=== PATIENT | female | born 1965 | race Caucasian/White ===

== ENCOUNTER 2022-01-23 12:12 | Outpatient (CLI) | payer OTHER, SELFPAY ==
[2022-01-23 12:46] LABS: Alanine Aminotransferase 17 U/L (6-35); Albumin Level 4.6 g/dL (3.5-5.1); Alkaline Phosphatase 78 U/L (38-126); Anion Gap 4 mmol/L (8-16); Aspartate Amino Transferase 26 U/L (14-36); Bilirubin,Total 0.6 mg/dL (0.2-1.3); Blood Urea Nitrogen 15 mg/dL (7-17); Calcium 8.9 mg/dL (8.4-10.2); Carbon Dioxide 25 mmol/L (22-30); Chloride 108 mmol/L (98-107); Cholesterol 198 mg/dL (0-200); Estimated Glomerular Filt Rate > 60; Glucose 93 mg/dL (65-110); HDL Direct 62 mg/dL; Potassium 4.1 mmol/L (3.4-5.0); Sodium 137 mmol/L (137-145); Triglycerides 81 mg/dL (<150)
[2022-01-23 12:57] LABS: LDL Cholesterol Direct 90 mg/dL
[2022-01-23 13:35] LABS: Free T4 Free Thyroxine 0.97 ng/mL (0.78-2.19)
== END 2022-01-23 12:13 | disposition home or self-care (01) ==
LOC: ANHLAB 12:16
PROVIDERS: PCP Family Medicine; Visit Provider Physician Assistant
DX: E03.9 Hypothyroidism, unspecified (principal); Z13.1 Encounter for screening for diabetes mellitus; Z00.00 Encounter for general adult medical examination without abnormal findings; Z13.220 Encounter for screening for lipoid disorders
CPT/HCPCS: 36415; 80053; 80061; 84439; 84443

== ENCOUNTER 2022-01-24 14:51 | Outpatient (CLI) | payer OTHER, SELFPAY ==
--- NOTE | ~2022-01-24 | MM_ITS ---
EXAMINATION: MM screening nidia BI w tomas HISTORY: Screening mammogram TECHNIQUE: Craniocaudal and mediolateral oblique 3-D tomosynthesis images were obtained and synthetic 2-D images were generated. CAD analysis was submitted and interpreted. COMPARISON: No prior mammogram is available for comparison at this institution. BREAST PARENCHYMAL COMPOSITION: There are scattered areas of fibroglandular density. FINDINGS: There is a biopsy marker in the upper outer quadrant of the left breast; history of prior b enign left breast biopsy. There is no suspicious mass, calcification, or architectural distortion to suggest malignancy in either breast. There has been no suspicious interval change. IMPRESSION: 1. No mammographic evidence of malignancy. 2. Recommend routine screening mammography in one year. BI-RADS Category 1: Negative Reviewed, dictated and finalized at location B.
== END 2022-01-24 14:52 | disposition home or self-care (01) ==
LOC: ANHIMG 14:53
PROVIDERS: PCP Family Medicine; Visit Provider Physician Assistant
DX: Z12.31 Encounter for screening mammogram for malignant neoplasm of breast (principal)
CPT/HCPCS: 77063; 77067

== ENCOUNTER 2022-07-04 10:37 | Outpatient (CLI) | payer OTHER, SELFPAY ==
[2022-07-04 11:23] LABS: Alanine Aminotransferase 19 U/L (6-35); Albumin Level 4.7 g/dL (3.5-5.1); Alkaline Phosphatase 89 U/L (38-126); Anion Gap 7 mmol/L (8-16); Aspartate Amino Transferase 23 U/L (14-36); Bilirubin,Total 0.6 mg/dL (0.2-1.3); Blood Urea Nitrogen 18 mg/dL (7-17); Calcium 9.1 mg/dL (8.4-10.2); Carbon Dioxide 26 mmol/L (22-30); Chloride 108 mmol/L (98-107); Cholesterol 186 mg/dL (0-200); Estimated Glomerular Filt Rate > 60; Glucose 99 mg/dL (65-110); HDL Direct 55 mg/dL; Potassium 4.3 mmol/L (3.4-5.0); Sodium 141 mmol/L (137-145); Triglycerides 95 mg/dL (<150)
[2022-07-04 11:34] LABS: LDL Cholesterol Direct 79 mg/dL
[2022-07-04 11:39] LABS: Free T4 Free Thyroxine 1.19 ng/mL (0.78-2.19)
== END 2022-07-04 10:38 | disposition home or self-care (01) ==
LOC: ANHLAB 10:38
PROVIDERS: PCP Family Medicine; Visit Provider Physician Assistant
DX: R53.83 Other fatigue (principal); Z13.220 Encounter for screening for lipoid disorders; Z13.1 Encounter for screening for diabetes mellitus
CPT/HCPCS: 36415; 80053; 80061; 84439; 84443

== ENCOUNTER 2022-09-02 00:14 | Day surgery (SDC) | payer OTHER, SELFPAY ==
[2022-08-19 12:27] VITALS: BMI 34.2
[2022-09-02 11:40] VITALS: BP 135/92; PULSE 110; RESP 18; TEMP 36.6; O2SAT 99
[2022-09-02] MEDS: LACTATED RINGERS 1,000 ML 150 ML IV CONT (11:58)
--- NOTE | 2022-09-02 12:16 | WPDANESEPPF ---
Anes - Initial Pre Proc Eval Procedure: Operation Date: 09/02/22 13:15 Proposed Procedures p Esophagogastroduodenoscopy & Colonoscopy - Eldon Martinez MD Date/Time: 09/02/22 12:16 Surgeon: Eldon Martinez MD Pre Op Diagnosis: colon polyp, dysphagia Patient Data Age: 57 Gender: F Height: 1.7 m Weight: 96.7 kg Last Vital Signs Temp 36.6 C 09/02/22 11:40 Pulse 110 H 09/02/22 11:40 Resp 18 09/02/22 11:40 BP 135/92 H 09/02/22 11:40 Pulse Ox 99 09/02/22 11:40 O2 Del Method Room Air 09/02/22 11:40 Allergies Allergy/AdvReac Type Severity Reaction Status Date / Time No Known Drug Allergies Allergy Unknown Verified 09/02/22 11:39 Home Medications Medication Instructions Recorded Confirmed Type omeprazole 20 mg capsule,delayed 20 mg PO DAILY 12/30/21 09/02/22 History release levothyroxine 88 mcg tablet 88 mcg PO DAILY #90 tabs 07/08/22 09/02/22 Rx Patient hx anesthesia problems: none Family hx anesthesia problems: none Results Review: All pre-operative results and documents have been reviewed as part of the pre-operative evaluation. COUNTS INCLUDE 234 BEDS AT THE [facility] Past Medical History Medical History Adenomatous colon polyp Arthritis Dysphagia Gallbladder disease GERD (gastroesophageal reflux disease) Hypothyroidism Thyroid disorder Surgical History Surgical History H/O knee surgery H/O total hip arthroplasty Right Hx of cholecystectomy Family History Family History Father , 86 Hypertension Heart disease Cerebrovascular accident Mother Diabetes mellitus Hypertension Thyroid disorder Social History Social History Smoking packs per day: 0.5 Smoking cigarettes per day: 10.0 Years smoked: 3 Smoking pack-years: 1.50 Smoking status: Never smoker Tobacco type: cigarettes Second hand tobacco smoke exposure: Yes Alcohol intake: current Drinks per week: 1 Alcohol use details: rare Substance use: never Substance use type: does not use Lack of Transportation: No Lack of Food: Never True Current Housing: I Have Housing Concerned About Future Housing: No Difficulty Paying Gas/Electric Bills: No Difficulty Paying for Meds: No Education: Associate Degree Difficulty w/ Childcare or Family Care: No Living arrangements: with family Occupation/Education: occupation Gender identity (if verbalized by the patient): Female Spiritual care concerns: No Anes - Eval Final PreProcedure Day of Procedure 09/02/22 12:16 Patient weight: overweight Heart: regular rate and rhythm Lungs: clear to auscultation and normal air movement Airway: Mallampati scale class II Neurological: alert and oriented Last oral intake: >/= 8 hours ASA classification: II Emergent: no Anesthetic plan: proceed Anesthesia type and monitoring: general GIVS Results Review: All pre-operative results and documents have been reviewed as part of the pre-operative evaluation. Informed Consent: The patient's anesthetic plan and its attendant risks and benefits were discussed with the patient/family/POA. Questions were solicited and answers provided to the satisfaction of the patient/family/POA.
--- NOTE | 2022-09-02 12:24 | PM.HPGS ---
History of Present Illness History of Present Illness Consent: Risks, benefits, and alternatives have been discussed and questions answered. Patient agrees to proceed with procedure. Chief complaint: colon polyp, dysphagia Narrative: Ev Granado is a 57 year old female here for egd and colonoscopy, h/o gerd, before last office visit she increased omeprazole bid because was having more esophageal spasm , it is helping some and noticed less cough but sometimes feeling sensation of food getting stuck in throat with mucus plug sensation even if she is not eating (had egd 2019 that required dilatation per patient), also had colonoscopy in 2017? Review of Systems Constitutional: Constitutional: Denies headache(s) and Denies weakness Eyes: Eyes: Denies blurry vision ENT: Reports Normal hearing present, Denies headache(s) and Denies neck pain Cardiovascular: Cardiovascular: Denies chest pain and Denies dyspnea Respiratory: Respiratory: Denies dyspnea Gastrointestinal: Gastrointestinal: Reports no additional gastrointestinal complaints Genitourinary: Genitourinary: Denies dysuria Musculoskeletal: Musculoskeletal: Denies neck pain Integumentary/Breasts: Skin/Breast: Denies dry skin Neurologic: Reports Normal hearing present, Denies headache(s) and Denies weakness Psychiatric: Psychiatric: Denies anxiety Endocrine: Endocrine: Denies change in body appearance Hematologic/Lymphatic: Hematologic/Lymphatic: Denies easy bleeding Allergic/Immunologic: Allergic/Immunologic: Denies urticaria PMFSH Past Medical History Medical History Adenomatous colon polyp Arthritis Dysphagia Gallbladder disease GERD (gastroesophageal reflux disease) Hypothyroidism Thyroid disorder Surgical History Surgical History H/O knee surgery H/O total hip arthroplasty Right Hx of cholecystectomy Family History Family History Father , 86 Hypertension Heart disease Cerebrovascular accident Mother Diabetes mellitus Hypertension Thyroid disorder Social History Social History Smoking packs per day: 0.5 Smoking cigarettes per day: 10.0 Years smoked: 3 Smoking pack-years: 1.50 Smoking status: Never smoker Tobacco type: cigarettes Second hand tobacco smoke exposure: Yes Alcohol intake: current Drinks per week: 1 Alcohol use details: rare Substance use: never Substance use type: does not use Lack of Transportation: No Lack of Food: Never True Current Housing: I Have Housing Concerned About Future Housing: No Difficulty Paying Gas/Electric Bills: No Difficulty Paying for Meds: No Education: Associate Degree Difficulty w/ Childcare or Family Care: No Living arrangements: with family Occupation/Education: occupation Gender identity (if verbalized by the patient): Female Spiritual care concerns: No Meds Home Medications and Allergies Home Medications Medication Instructions Recorded Confirmed Type omeprazole 20 mg capsule,delayed 20 mg PO DAILY 12/30/21 09/02/22 History release levothyroxine 88 mcg tablet 88 mcg PO DAILY #90 tabs 07/08/22 09/02/22 Rx Allergies Allergy/AdvReac Type Severity Reaction Status Date / Time No Known Drug Allergies Allergy Unknown Verified 09/02/22 11:39 Vital Signs Vital Signs - 24 hr 09/02/22 11:40 Temperature 97.8 F Pulse Rate 110 H Respiratory Rate 18 Blood Pressure 135/92 H Pulse Oximetry 99 Oxygen Delivery Room Air Exam Const: General: comfortable and no acute distress HENMT: Face/Nose/Sinus: Normal nares present Eyes: General: appearance normal, both eyes and all related structures Neck: Neck: no JVD Resp: Auscultation: clear to auscultation bilaterally Cardio: R
[2022-09-02 12:56] VITALS: BP 87/60; PULSE 86; RESP 20; O2SAT 100
--- NOTE | 2022-09-02 12:56 | SUR.OPER ---
EGD end 1235 COLONOSCOPY START 1242
[2022-09-02 13:06] VITALS: BP 96/55; PULSE 79; RESP 16; O2SAT 100
[2022-09-02 13:16] VITALS: BP 102/62; PULSE 65; RESP 15; O2SAT 99
== END 2022-09-02 13:37 | disposition home or self-care (01) ==
PROVIDERS: PCP Family Medicine; Visit Provider Internal Medicine Gastroenterology
PROC: 0DJ08ZZ Inspection of Upper Intestinal Tract, Via Natural or Artificial Opening Endoscopic (ICD-10-PCS; CPT 43235; principal; 2022-09-02 13:15)
DX: Z12.11 Encounter for screening for malignant neoplasm of colon (principal); D12.4 Benign neoplasm of descending colon; K64.8 Other hemorrhoids; K22.2 Esophageal obstruction; K44.9 Diaphragmatic hernia without obstruction or gangrene; E03.9 Hypothyroidism, unspecified
CPT/HCPCS: 45385; 43239; 43249; 88305; C1726; J2704; J7120

== ENCOUNTER 2022-12-18 15:40 | Emergency (ER) | payer OTHER, SELFPAY ==
--- NOTE | 2022-12-18 15:57 | ED.GENADULT ---
HPI - General Adult General Chief complaint: Ear Stated complaint: LUMP IN THROAT Time Seen by Provider: 12/18/22 15:57 Source: patient Mode of arrival: ambulatory Limitations: no limitations History of Present Illness HPI narrative: 57 yo F presents with c/o sensation of lump in throat. States she has felt this way since September and is worse over the past 4 days. Pt had EGD in September that showed hiatal hernia. She states over the past several days when she turns head to left she feels a lump. Since yesterday her voice has changed and pt feels is related to lump getting bigger and affecting vocal cords . She denies difficulty breathing or swallowing. Looked into her throat today and saw something . Denies pain. States i have absolutely no pain or any other signs that makes me think this is an infection . Pt was hoping she could get a CT scan at urgent care or have ordered as outpatient. She went to her PCP office today but not able to get appt til thursday. Pt does not want to go to the ER. All systems reviewed and negative except as noted above. Related Data Home Medications Medication Instructions Recorded Confirmed omeprazole 20 mg capsule,delayed 20 mg PO DAILY 12/30/21 12/18/22 release Allergies Allergy/AdvReac Type Severity Reaction Status Date / Time No Known Drug Allergies Allergy Unknown Verified 12/18/22 15:53 Review of Systems Review of Systems: CONSTITUTIONAL: Denies fever, chills, or sweats. EYES: Denies visual changes, redness, or discharge. ENT: Denies rhinorrhea, congestion, sore throat, or otalgia. reports sensation of lump in throat/neck CARDIOVASCULAR: Denies chest pain, palpitations, or edema. RESPIRATORY: Denies cough or dyspnea. GASTROINTESTINAL: Denies abdominal pain, nausea, vomiting, or diarrhea. GENITOURINARY: Denies dysuria or hematuria. SKIN: Denies rash or itching. MUSCULOSKELETAL: Denies back pain, joint pain, or myalgia. NEUROLOGIC: Denies headache, numbness, or weakness. PSYCHIATRIC: Denies anxiety or depression. All other systems reviewed are negative, except as documented in HPI. [facility] Past Medical History Medical History Adenomatous colon polyp Arthritis Dysphagia Gallbladder disease GERD (gastroesophageal reflux disease) Hypothyroidism Thyroid disorder Surgical History Surgical History H/O knee surgery H/O total hip arthroplasty Right Hx of cholecystectomy Family History Family History Father , 86 Hypertension Heart disease Cerebrovascular accident Mother Diabetes mellitus Hypertension Thyroid disorder Social History Social History Smoking packs per day: 0.5 Smoking cigarettes per day: 10.0 Years smoked: 3 Smoking pack-years: 1.50 Smoking status: Never smoker Tobacco type: cigarettes Second hand tobacco smoke exposure: Yes Alcohol intake: current Drinks per week: 1 Alcohol use details: rare Substance use: never Substance use type: does not use Lack of Transportation: No Lack of Food: Never True Current Housing: I Have Housing Concerned About Future Housing: No Difficulty Paying Gas/Electric Bills: No Difficulty Paying for Meds: No Education: Associate Degree Difficulty w/ Childcare or Family Care: No Living arrangements: with family Occupation/Education: occupation Gender identity (if verbalized by the patient): Female Spiritual care concerns: No Comments At time of signature, agree with nursing past medical, surgical, social and family history. There is no relevant family history pertinent to the presenting complaint. Exam Narrative: GENERAL: This is a well-nourished, well-developed patient, in no apparent distress. HEAD: normocephalic, atraumatic. EYES: PERRL. Scle
[2022-12-18 16:02] VITALS: BP 113/86; PULSE 97; RESP 16; TEMP 36.4; O2SAT 99
== END 2022-12-18 16:24 | disposition home or self-care (01) ==
PROVIDERS: Emergency Provider Nurse Practitioner Family; PCP Family Medicine
DX: R22.1 Localized swelling, mass and lump, neck (principal); J35.1 Hypertrophy of tonsils; Z87.891 Personal history of nicotine dependence; M19.90 Unspecified osteoarthritis, unspecified site; K21.9 Gastro-esophageal reflux disease without esophagitis; E03.9 Hypothyroidism, unspecified; Z96.641 Presence of right artificial hip joint
CPT/HCPCS: 87081; 87880; 99213; G0463

== ENCOUNTER 2022-12-19 14:46 | Outpatient (CLI) | payer OTHER, SELFPAY ==
--- NOTE | ~2022-12-19 | CT_ITS ---
EXAMINATION: CT soft tissue neck w con DATE: 12/19/2022 15:15 INDICATION: Localized swelling, mass and lump at the neck. TECHNIQUE: Computed tomography (CT) of the neck was performed with 75 mL Omnipaque-350 intravenous co ntrast. Automated exposure control and iterative reconstruction technique were employed. The dose-day gth product was 491.49 mGy-cm. COMPARISON: None FINDINGS: Visualized portions of the orbits are normal. Mild mucosal thickening in the bilateral maxillary sinu ses appear. Visualized portions of the mastoid air cells and middle ear cavities are clear. Submandib ular and parotid glands are symmetric. Thyroid gland is normal. The left submandibular gland underlie s the marker indicating the palpable mass of concern. Asymmetric enlargement of still normal-sized ce rvical lymph nodes at the posterior cervical triangle and left jugular chain, the largest measuring 9 mm in maximal diameter of a left ventricular chamber lymph node at the level of the mandible and 8 m m tracks diameter at the cephalad aspect of the left posterior triangle at the same level. There is p rominent asymmetric nodular thickening of the tissues at the left side of the pharynx in the region o f the left palatine tonsil. There is no evident stranding in the immediately adjacent fat the left pa rapharyngeal space more specifically suggest an inflammatory etiology which raises concern for malign simon. The vasculature is patent and normal in caliber. Airway is unremarkable. Superior mediastinum i s unremarkable. Lung apices are normal. IMPRESSION: 1. Prominent asymmetric nodular soft tissue thickening at the left side of the pharynx centered in th e region of the L-spine tonsil but without evident from trace stranding in the adjacent parapharyngea l fat to suggest inflammation and which raises concern for malignancy. Consider ENT consultation part icularly in the absence of clinical findings of acute tonsillitis. 2. Asymmetric mild enlargement of still normal-sized left cervical lymph nodes most prominent near th e level of the pharyngeal wall thickening which could be either reactive or metastatic. Reviewed, dictated and finalized at location A. IMPRESSION: 1. Prominent asymmetric nodular soft tissue thickening at the left side of the pharynx centered in the region of the L-spine tonsil but without evident from t race stranding in the adjacent parapharyngeal fat to suggest inflammation and w hich raises concern for malignancy. Consider ENT consultation particularly in t he absence of clinical findings of acute tonsillitis. 2. Asymmetric mild enlargement of still normal-sized left cervical lymph nodes most prominent near the level of the pharyngeal wall thickening which could be either reactive or metastatic.
== END 2022-12-19 14:47 | disposition home or self-care (01) ==
PROVIDERS: PCP Family Medicine; Visit Provider Physician Assistant Medical
DX: R22.1 Localized swelling, mass and lump, neck (principal)
CPT/HCPCS: 70491; Q9967

== ENCOUNTER 2023-02-03 11:04 | Outpatient (CLI) | payer OTHER, SELFPAY ==
[2023-02-03 11:22] LABS: Basophils Percent Auto 0.6 % (0.2-1.2); Eosinophils Absolute Auto 0.2 K/mm3 (0-0.3); Eosinophils Percent Auto 2.3 % (0-4.4); Hemoglobin 13.7 g/dL (12.0-15.0); Immature Granulocyte Absolute 0.02 K/mm3 (0.00-0.031); Immature Granulocyte Percent A 0.3 % (0-0.5); Lymphocytes Absolute Auto 2.67 K/mm3 (0.9-3.2); Lymphocytes Percent Auto 37.6 % (18.3-44.2); Mean Corpuscular HGB Conc 33.4 g/dl (32-36); Mean Corpuscular Hemoglobin 29.7 pg (26-34); Mean Corpuscular Volume 88.7 fl (80-100); Mean Platelet Volume 8.9 fl (7.4-10.4); Monocytes Absolute Auto 0.5 K/mm3 (0.1-0.6); Neutrophils Absolute Auto 3.7 K/mm3 (1.3-6.7); Neutrophils Percent Auto 52.2 % (45.5-73.1); Platelet Count Result 259 k/mm3 (150-375); Red Blood Count 4.62 M/mm3 (4.2-5.4); Red Cell Distribution Width 13.1 % (11.5-14.5); White Blood Count 7.1 K/mm3 (4.5-10.0)
[2023-02-03 11:28] LABS: Blood Urea Nitrogen 15 mg/dL (8-26); Carbon Dioxide 24 mmol/L (22-30); Chloride 106 mmol/L (98-109); Estimated Glomerular Filt Rate > 60; Glucose 90 mg/dL (70-105); Ionized Calcium (POC) 1.21 mmol/L (1.11-1.31); Potassium 4.1 mmol/L (3.5-4.9); Sodium 144 mmol/L (138-146)
[2023-02-03 20:44] LABS: Alanine Aminotransferase 18 U/L (6-35); Albumin Level 4.4 g/dL (3.5-5.1); Alkaline Phosphatase 67 U/L (38-126); Anion Gap 6 mmol/L (8-16); Aspartate Amino Transferase 25 U/L (14-36); Bilirubin,Total 0.9 mg/dL (0.2-1.3); Blood Urea Nitrogen 16 mg/dL (7-17); Calcium 9.3 mg/dL (8.4-10.2); Carbon Dioxide 25 mmol/L (22-30); Chloride 108 mmol/L (98-107); Estimated Glomerular Filt Rate > 60; Glucose 88 mg/dL (65-110); Potassium 4.2 mmol/L (3.4-5.0); Sodium 139 mmol/L (137-145)
== END 2023-02-03 11:05 | disposition home or self-care (01) ==
LOC: ANHLAB 11:06
PROVIDERS: Visit Provider Internal Medicine Hematology & Oncology
DX: C10.9 Malignant neoplasm of oropharynx, unspecified (principal)
CPT/HCPCS: 36415; 80047; 80053; 85025

== ENCOUNTER 2023-02-18 09:10 | Outpatient (CLI) | payer OTHER, SELFPAY ==
--- NOTE | ~2023-02-18 | US_ITS ---
EXAMINATION: US venous doppler LE RT DATE: 02/18/2023 10:06 INDICATION: Right lower limb swelling. TECHNIQUE: Grayscale ultrasound images without and with compression and Doppler ultrasound images of the right lower extremity veins were obtained. COMPARISON: None. FINDINGS: The visualized portions of right common femoral vein, profunda (deep) femoral vein, femoral vein, pop liteal vein, peroneal veins, posterior tibial veins, and greater saphenous vein outflow are patent. T here are thrombosed superficial veins in the calf and popliteal fossa. IMPRESSION: 1. No deep venous thrombosis. 2. Thrombosed superficial veins in the calf and popliteal fossa. Reviewed, dictated and finalized at location E.
== END 2023-02-18 09:11 | disposition home or self-care (01) ==
PROVIDERS: PCP Physician Assistant Medical; Visit Provider Radiology Radiation Oncology
DX: I82.811 Embolism and thrombosis of superficial veins of right lower extremity (principal)
CPT/HCPCS: 93971

== ENCOUNTER 2023-02-24 10:40 | Outpatient (CLI) | payer OTHER, SELFPAY ==
[2023-02-24 10:57] LABS: Basophils Percent Auto 0.5 % (0.2-1.2); Eosinophils Absolute Auto 0.1 K/mm3 (0-0.3); Eosinophils Percent Auto 2.7 % (0-4.4); Hematocrit 36.1 % (37.0-47.0); Hemoglobin 12.1 g/dL (12.0-15.0); Immature Granulocyte Absolute 0.01 K/mm3 (0.00-0.031); Immature Granulocyte Percent A 0.2 % (0-0.5); Lymphocytes Absolute Auto 0.72 K/mm3 (0.9-3.2); Lymphocytes Percent Auto 17.3 % (18.3-44.2); Mean Corpuscular HGB Conc 33.5 g/dl (32-36); Mean Corpuscular Hemoglobin 30.1 pg (26-34); Mean Corpuscular Volume 89.8 fl (80-100); Mean Platelet Volume 8.1 fl (7.4-10.4); Monocytes Absolute Auto 0.6 K/mm3 (0.1-0.6); Monocytes Percent Auto 14.2 % (2.6-8.5); Neutrophils Absolute Auto 2.7 K/mm3 (1.3-6.7); Neutrophils Percent Auto 65.1 % (45.5-73.1); Platelet Count Result 306 k/mm3 (150-375); Red Blood Count 4.02 M/mm3 (4.2-5.4); Red Cell Distribution Width 12.9 % (11.5-14.5); White Blood Count 4.2 K/mm3 (4.5-10.0)
[2023-02-24 11:02] LABS: Blood Urea Nitrogen 21 mg/dL (8-26); Carbon Dioxide 23 mmol/L (22-30); Chloride 103 mmol/L (98-109); Estimated Glomerular Filt Rate > 60; Glucose 102 mg/dL (70-105); Potassium 3.9 mmol/L (3.5-4.9); Sodium 140 mmol/L (138-146)
[2023-02-24 12:00] LABS: Alanine Aminotransferase 15 U/L (6-35); Albumin Level 4.4 g/dL (3.5-5.1); Alkaline Phosphatase 72 U/L (38-126); Anion Gap 8 mmol/L (8-16); Aspartate Amino Transferase 21 U/L (14-36); Bilirubin,Total 0.7 mg/dL (0.2-1.3); Blood Urea Nitrogen 22 mg/dL (7-17); Carbon Dioxide 26 mmol/L (22-30); Chloride 104 mmol/L (98-107); Estimated Glomerular Filt Rate > 60; Glucose 97 mg/dL (65-110); Potassium 3.8 mmol/L (3.4-5.0); Sodium 138 mmol/L (137-145)
[2023-02-24 16:38] LABS: Magnesium 2.1 mg/dL (1.6-2.3)
== END 2023-02-24 10:41 | disposition home or self-care (01) ==
PROVIDERS: PCP Physician Assistant Medical; Visit Provider Internal Medicine Hematology & Oncology
DX: C10.9 Malignant neoplasm of oropharynx, unspecified (principal)
CPT/HCPCS: 36415; 80047; 80053; 83735; 85025

== ENCOUNTER 2023-03-10 12:40 | Observation (INO) | payer OTHER, SELFPAY ==
--- NOTE | ~2023-03-10 | XR_ITS ---
EXAMINATION: XR chest 1V portable DATE: 03/12/2023 10:24 INDICATION: Cough and fever TECHNIQUE: frontal view of the chest was obtained. COMPARISON: Chest radiograph dated 08/28/2021 FINDINGS: The lungs are clear with no focal airspace opacities, pulmonary edema, pleural effusion or pneumothor ax. The cardiomediastinal silhouette is normal. Mild thoracic spondylosis. IMPRESSION: 1. No acute cardiopulmonary disease. Reviewed, dictated and finalized at location A.
[2023-03-10 13:10] VITALS: BP 119/78; PULSE 115; RESP 16; TEMP 36.7; O2SAT 100
[2023-03-10] MEDS: SODIUM CHLORIDE 0.9% IV 1,000 ML 999 ML IV CONT (14:05)
[2023-03-10 14:24] LABS: Basophils Percent Auto 0.5 % (0.2-1.2); Eosinophils Percent Auto 0.2 % (0-4.4); Hematocrit 36.4 % (37.0-47.0); Hemoglobin 12.2 g/dL (12.0-15.0); Immature Granulocyte Absolute 0.01 K/mm3 (0.00-0.031); Immature Granulocyte Percent A 0.2 % (0-0.5); Lymphocytes Absolute Auto 0.32 K/mm3 (0.9-3.2); Lymphocytes Percent Auto 5.6 % (18.3-44.2); Mean Corpuscular HGB Conc 33.5 g/dl (32-36); Mean Corpuscular Hemoglobin 30.2 pg (26-34); Mean Corpuscular Volume 90.1 fl (80-100); Monocytes Absolute Auto 0.4 K/mm3 (0.1-0.6); Monocytes Percent Auto 6.3 % (2.6-8.5); Neutrophils Percent Auto 87.2 % (45.5-73.1); Platelet Count Result 206 k/mm3 (150-375); Red Blood Count 4.04 M/mm3 (4.2-5.4); Red Cell Distribution Width 13.1 % (11.5-14.5); White Blood Count 5.8 K/mm3 (4.5-10.0)
[2023-03-10 14:35] LABS: Alanine Aminotransferase 25 U/L (6-35); Albumin Level 4.8 g/dL (3.5-5.1); Alkaline Phosphatase 77 U/L (38-126); Anion Gap 10 mmol/L (8-16); Aspartate Amino Transferase 25 U/L (14-36); Bilirubin,Total 0.9 mg/dL (0.2-1.3); Blood Urea Nitrogen 21 mg/dL (7-17); Calcium 9.6 mg/dL (8.4-10.2); Carbon Dioxide 25 mmol/L (22-30); Chloride 100 mmol/L (98-107); Estimated CRCL calculation 66 ml/min; Estimated Glomerular Filt Rate > 60; Glucose 100 mg/dL (65-110); Potassium 4.1 mmol/L (3.4-5.0); Sodium 135 mmol/L (137-145)
[2023-03-10 14:57] LABS: INR 1.1; Partial Thromboplastin Time 25.3 SECONDS (22.3-36.8); Prothrombin Time 14.4 Seconds (11.1-14.7)
--- NOTE | 2023-03-10 15:12 | ED.GENADULT ---
HPI - General Adult General Chief complaint: Recheck/Abnormal Lab/Rx Stated complaint: feeding tube placement Time Seen by Provider: 03/10/23 13:42 History of Present Illness HPI narrative: Patient is a 57-year-old female who presents ER with sore throat and difficulty swallowing. 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 She has had poor oral intake over the last couple of weeks. After consultation with the radiation oncologist its been determined she should come in for hydration and a PEG placement. Related Data Home Medications Medication Instructions Recorded Confirmed omeprazole 20 mg capsule,delayed 20 mg PO DAILY 12/30/21 03/10/23 release Allergies Allergy/AdvReac Type Severity Reaction Status Date / Time No Known Drug Allergies Allergy Unknown Verified 03/10/23 10:35 Review of Systems Review of Systems: All systems reviewed & are unremarkable except as noted in HPI and below Constitutional: Constitutional: Reports no additional constitutional complaints ENT: Denies nasal congestion and Reports sore throat Cardiovascular: Cardiovascular: Reports no additional cardiovascular complaints Respiratory: Respiratory: Reports no additional respiratory complaints Gastrointestinal: Gastrointestinal: Reports no additional gastrointestinal complaints [facility] Past Medical History Medical History Adenomatous colon polyp Arthritis Dysphagia Gallbladder disease GERD (gastroesophageal reflux disease) Hypothyroidism Thyroid disorder Surgical History Surgical History H/O knee surgery H/O total hip arthroplasty Right Hx of cholecystectomy Family History Family History Father , 86 Hypertension Heart disease Cerebrovascular accident Mother Diabetes mellitus Hypertension Thyroid disorder Social History Social History (Updated 12/19/22 @ 13:26 by Natalie Coleman MA) Smoking packs per day: 0.5 Smoking cigarettes per day: 10.0 Years smoked: 3 Smoking pack-years: 1.50 Smoking status: Never smoker Second hand tobacco smoke exposure: Yes Alcohol intake: current Drinks per week: 1 Alcohol use details: rare Substance use: never Substance use type: does not use Lack of Transportation: No Lack of Food: Never True Current Housing: I Have Housing Concerned About Future Housing: No Difficulty Paying Gas/Electric Bills: No Difficulty Paying for Meds: No Currently Unemployed: Decline to Answer Education: Associate Degree Difficulty w/ Childcare or Family Care: No Living arrangements: with family Occupation/Education: occupation Gender identity (if verbalized by the patient): Female Spiritual care concerns: No Agree to blood products: Yes Exam Narrative: GENERAL: Well-appearing, well-nourished, and in no acute distress. HEAD: Normocephalic, atraumatic. EYES: PERRL and EOMI. ENT: Mucous membranes moist. Mild trismus with posterior pharyngeal irritation. Tolerating oral secretions but will occasionally spit. CHEST: Clear to auscultation. No respiratory distress. HEART: Regular rate and rhythm. Normal peripheral pulses. ABDOMEN: Soft, nontender, nondistended. EXTREMITIES: Normal range of motion. No edema. SKIN: Warm, dry, no rash. NEURO: Alert and oriented x3. PSYCH: Normal mood and affect. Course Course Emergency Course: Patient resting comfortably. Contacted Dr. Martinez who patient has seen in the past. He will see patient for PEG placement. Accepted by hospitalist service. Vital Signs Vital signs: Vital Signs Temperature 98.0 F 03/10/23 13:10 Pulse Rate 115 H 03/10/23 13:10 Respiratory Rate 16 03/10/23 13:10 Blood Pressure 119/78 03/10/23 13:10 Pulse Oximetry 100 03/10/23 13:10
--- NOTE | 2023-03-10 15:52 | PM.IMHP ---
H&P: HPI History of Present Illness Date/Time: 03/10/23 16:00 Chief Complaint: Difficulty swallowing. 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 The patient provides the following history. She has completed 25 radiation treatments and with each treatment it seems as though she has worsening dysphagia and odynophagia. She has been battling moderate mucositis as well for which she is using Magic mouthwash. She is losing weight and has difficulties with oral intake recently due to the aforementioned symptoms. She was referred to the ER today for admission and consideration of G-tube during treatment. At the time my evaluation she is spitting up a good amount of thick, clear mucus though she denies having troubles managing her secretions. No significant abnormalities were noted on labs though sodium was a bit low at 135. She is not feeling short of breath. Her appetite is not good in her taste buds are altered. She has had some nausea. She denies fever, chills, and sweats. Review of Systems Review of Systems: Twelve systems were reviewed. No cold or flu symptoms. She recently had a superficial thrombosis of the right calf vein which has improved significantly. No chest pain, pleuritic pain, or shortness of breath. Except as documented, all other systems were reviewed and are negative. [facility] Past Medical History Medical History (Updated 03/10/23 @ 20:57 by Pratima Amaya PA-C) Adenomatous colon polyp Arthritis Gastroesophageal reflux disease Hypothyroidism Squamous cell carcinoma of left tonsil Surgical History Surgical History (Updated 03/10/23 @ 20:53 by Pratima Amaya PA-C) History of cholecystectomy History of left knee surgery History of total right hip arthroplasty Family History Family History Father , 86 Hypertension Heart disease Cerebrovascular accident Mother Diabetes mellitus Hypertension Thyroid disorder Social History Social History (Updated 03/10/23 @ 20:54 by Pratima Amaya PA-C) Social History: Surrogate medical decision maker: Collin Dillon, son. Code status: Full code. Smoking packs per day: 0.5 Smoking cigarettes per day: 10.0 Years smoked: 3 Smoking pack-years: 1.50 Smoking status: Former smoker Second hand tobacco smoke exposure: Yes Alcohol intake: current Drinks per week: 1 Alcohol use details: Rare alcohol use in moderation. Substance use: never Substance use type: does not use Lack of Transportation: No Lack of Food: Never True Current Housing: I Have Housing Concerned About Future Housing: No Difficulty Paying Gas/Electric Bills: No Difficulty Paying for Meds: No Currently Unemployed: Decline to Answer Education: Associate Degree Difficulty w/ Childcare or Family Care: No Living arrangements: with family Occupation/Education: occupation Additional occupation/education comments: RN at [employer]. Spiritual care concerns: No Agree to blood products: Yes Meds Home Medications and Allergies Home Medications Medication Instructions Recorded Confirmed Type omeprazole 20 mg capsule,delayed 20 mg PO DAILY 12/30/21 03/10/23 History release levothyroxine 88 mcg tablet 88 mcg PO DAILY #90 tabs 07/08/22 03/10/23 Rx Allergies Allergy/AdvReac Type Severity Reaction Status Date / Time No Known Drug Allergies Allergy Unknown Verified 03/10/23 10:35 Vital Signs Vital Signs - 24 hr 03/10/23 13:10 Temperature 98.0 F Pulse Rate 115 H Respiratory Rate 16 Blood Pressure 119/78 Pulse Oximetry 100 Oxygen Delivery Room Air Exam Narrative: General: Well-developed, mildly ill-appearing female sitting up in bed. Weight: 80.45 kg. BMI: 27.8. HEENT: [place]
[2023-03-10 16:09] VITALS: BP 131/77; PULSE 101; RESP 16; TEMP 36.7; O2SAT 100
[2023-03-10] MEDS: LACTATED RINGERS 1,000 ML 125 ML IV CONT (16:23)
--- NOTE | 2023-03-10 17:23 | ADMGEN ---
This patient, Ev Granado, was admitted to Medical Room 349-01. Patient/family oriented to hospital policies and general routines including ID bracelet, bed and alarms, visiting hours, pain management, procedures, bathroom and other care routines, personal items, smoking policy, room service/diet, and visiting hours. Information on how to activate the Rapid Response Team has been discussed. Patient/Family are encouraged to report perceived risks to care and to ask questions if they do not understand what they are told or what they should do.
[2023-03-10 17:47] VITALS: BMI 27.8
[2023-03-10 18:12] VITALS: BP 131/79; PULSE 92; RESP 18; TEMP 37.3; O2SAT 99
[2023-03-10 20:57] VITALS: BP 133/74; PULSE 95; RESP 16; TEMP 37.9; O2SAT 100
[2023-03-10] MEDS: MAGNES & ALUM HYD/SIMETH/DIPHENHYD/LIDOCAINE 119 ML MOUTHWASH BY MOUTH (21:57)
[2023-03-10 21:58] VITALS: TEMP 37.9
[2023-03-10] MEDS: IBUPROFEN IV 800 MG/200 ML 800 MG/200 ML BAG 400 MG IVPB (21:58)
[2023-03-11] VITALS (7 sets, daily range): BP systolic 115–139; BP diastolic 67–87; PULSE 80–116; RESP 13–21; TEMP 36.6–38.2; O2SAT 97–100; BMI 27.8
[2023-03-11] MEDS: MAGNES & ALUM HYD/SIMETH/DIPHENHYD/LIDOCAINE 119 ML MOUTHWASH BY MOUTH ×4 (05:44→19:39)
[2023-03-11] MEDS: LACTATED RINGERS 1,000 ML 125 ML IV CONT (05:44)
[2023-03-11] MEDS: LEVOTHYROXINE SODIUM 88 MCG TABLET PO (05:44)
[2023-03-11] MEDS: PANTOPRAZOLE SODIUM IV 40 MG VIAL IV PUSH (08:37)
--- NOTE | 2023-03-11 09:20 | PM.IMPN ---
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 Still needs to complete 10 more treatments. increased difficulty with swallowing follows with Dr Mendes here to be evaluated for a PEG tube NPO at midnight Dr Mae consulted and appreciate rec's s/p PEG tube. Okay to use after 6 hours from placement (1800 on 03/11). consult dietitian for rec's on feeding consult ST for dysphagia (2) Squamous cell carcinoma of left tonsil: Code(s): C09.9 - Malignant neoplasm of tonsil, unspecified Status: Acute Assessment and Plan: see above (3) Hypothyroidism: Code(s): E03.9 - Hypothyroidism, unspecified Status: Acute Assessment and Plan: Continue home levothyroxine 88 mcg PO daily last set of labs were normal in 06/2022 Patient has not been taking this medication due to pain and dysphagia re-check TSH, T3, T4 in the am (4) Gastroesophageal reflux disease: Code(s): K21.9 - Gastro-esophageal reflux disease without esophagitis Status: Acute Assessment and Plan: Taking omeprazole 20 mg PO daily continue while inpatient Plan Feeding:NPO, jevity 1.5 Analgesia: tylenol Thromboembolic prophylaxis: scd Ulcer prophylaxis: PPI Glycemic control: NA Bowel regimen: NA Lines: PIV Antibiotics: NA Disposition: Home with tube feeding. Subjective Date/time seen: 03/11/23 09:20 Interval history: HPI obtained from chart, This is a very pleasant 57-year-old currently undergoing chemoradiation for left tonsil squamous cell carcinoma who presented to the emergency department via private vehicle with difficulties swallowing. The patient provides the following history. She has completed 25 radiation treatments and with each treatment it seems as though she has worsening dysphagia and odynophagia. She has been battling moderate mucositis as well for which she is using Magic mouthwash. She is losing weight and has difficulties with oral intake recently due to the aforementioned symptoms. She was referred to the ER today for admission and consideration of G-tube during treatment. At the time my evaluation she is spitting up a good amount of thick, clear mucus though she denies having troubles managing her secretions. No significant abnormalities were noted on labs though sodium was a bit low at 135. She is not feeling short of breath. Her appetite is not good in her taste buds are altered. She has had some nausea. She denies fever, chills, and sweats. 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 She was seen today after her G-tube placement. She is lying on her left side and says that she just got comfortable as she has had throat pain as well as tenderness to her new G-tube site. She is hesitant to take opioids as she is sensitive to their effects. She was given Toradol for pain and she says that that helps to take the edge off. I discussed changing her pain pill to liquid. Besides her fatigue you can weakness, throat pain, and tenderness her G-tube site she has no complaints this time. Speech therapy will see her and evaluate her. Dietitian is on board and has posted recommendations for bolus feeding. Patient is able to manage her PEG tube at home independently. Review of Systems Review of Systems: All systems reviewed & are unremarkable except as noted in HPI and below Exam Narrative: General: ill appearing, well developed, well nourished, appears stated age. HEENT: normocephalic, atraumatic. Mucous membranes moist. EOMI, PERRLA, bilateral sclera anicteric, no conjunctival injection. Neck supple without JVD, lymphadenopathy, or bruit. Respiratory: clear to auscultation bilaterally. No rales/rhonic/wheezes. Cardiovascular: Regular rate and rhythm,
--- NOTE | 2023-03-11 10:37 | PCSTNOTE ---
Therapist spoke with nurse who reported patient should be going for procedure to receive stomach tube this morning. Hold Bedside Swallow Evaluation until after procedure today or tomorrow morning.
--- NOTE | 2023-03-11 10:41 | PC.NURSE ---
Pt off floor via wheelchair to GI Lab
[2023-03-11] MEDS: LACTATED RINGERS 1,000 ML 150 ML IV CONT (10:54)
[2023-03-11] MEDS: ceFAZolin 1 GM/NS 50 ML 1 GM/50 ML BAG IVPB (10:54)
--- NOTE | 2023-03-11 11:02 | WPDANESEPPF ---
Anes - Initial Pre Proc Eval Procedure: Operation Date: 03/11/23 12:00 Proposed Procedures p Percutaneous Endoscopic Gastrostomy - Eldon Martinez MD Date/Time: 03/11/23 11:02 Surgeon: Link Johnson MD Pre Op Diagnosis: dysphagia,ortharyngeal cancer Patient Data Age: 57 Gender: F Height: 1.7 m Weight: 80.45 kg Last Vital Signs Temp 99 F 03/11/23 05:56 Pulse 112 H 03/11/23 05:56 Resp 15 03/11/23 05:56 BP 139/84 03/11/23 05:56 Pulse Ox 99 03/11/23 05:56 O2 Del Method Room Air 03/11/23 08:00 Allergies Allergy/AdvReac Type Severity Reaction Status Date / Time No Known Drug Allergies Allergy Unknown Verified 03/11/23 11:00 Home Medications Medication Instructions Recorded Confirmed Type omeprazole 20 mg capsule,delayed 20 mg PO DAILY 12/30/21 03/10/23 History release levothyroxine 88 mcg tablet 88 mcg PO DAILY #90 tabs 07/08/22 03/10/23 Rx Laboratory Tests 03/10/23 14:10 WBC 5.8 K/mm3 (4.5-10.0) RBC 4.04 L M/mm3 (4.2-5.4) Hgb 12.2 g/dL (12.0-15.0) Hct 36.4 L % (37.0-47.0) MCV 90.1 fl (80-100) MCH 30.2 pg (26-34) MCHC 33.5 g/dl (32-36) RDW 13.1 % (11.5-14.5) Plt Count 206 k/mm3 (150-375) MPV 9.0 fl (7.4-10.4) Immature Gran % (Auto) 0.2 % (0-0.5) Neut % (Auto) 87.2 H % (45.5-73.1) Lymph % (Auto) 5.6 L % (18.3-44.2) [place] % (Auto) 6.3 % (2.6-8.5) Eos % (Auto) 0.2 % (0-4.4) Baso % (Auto) 0.5 % (0.2-1.2) Lymph # (Auto) 0.32 L K/mm3 (0.9-3.2) [place] # (Auto) 0.4 K/mm3 (0.1-0.6) Eos # (Auto) 0.0 K/mm3 (0-0.3) Baso # (Auto) 0.0 K/mm3 (0.0-0.1) Abs Immat Gran (auto) 0.01 K/mm3 (0.00-0.031) Absolute Neuts (auto) 5.0 K/mm3 (1.3-6.7) Absolute Nucleated RBC 0.0 K/mm3 (0.0-0.012) Nucleated RBC % 0.0 % (0.0-0.2) PT 14.4 Seconds (11.1-14.7) INR 1.1 APTT 25.3 SECONDS (22.3-36.8) Sodium 135 L mmol/L (137-145) Potassium 4.1 mmol/L (3.4-5.0) Chloride 100 mmol/L (98-107) Carbon Dioxide 25 mmol/L (22-30) Anion Gap 10 mmol/L (8-16) BUN 21 H mg/dL (7-17) Creatinine 0.90 mg/dL (0.7-1.0) Estim Creat Clear Calc 66 ml/min Estimated GFR > 60 (59 - ) Glucose 100 mg/dL (65-110) Calcium 9.6 mg/dL (8.4-10.2) Total Bilirubin 0.9 mg/dL (0.2-1.3) AST 25 U/L (14-36) ALT 25 U/L (6-35) Alkaline Phosphatase 77 U/L (38-126) Total Protein 8.0 g/dL (6.3-8.2) Albumin 4.8 g/dL (3.5-5.1) Patient hx anesthesia problems: none Family hx anesthesia problems: none Results Review: All pre-operative results and documents have been reviewed as part of the pre-operative evaluation. [facility] Past Medical History Medical History (Updated 03/10/23 @ 20:57 by Pratima Amaya PA-C) Adenomatous colon polyp Arthritis Gastroesophageal reflux disease Hypothyroidism Squamous cell carcinoma of left tonsil Surgical History Surgical History (Updated 03/10/23 @ 20:53 by Pratima Amaya PA-C) History of cholecystectomy History of left knee surgery History of total right hip arthroplasty Family History Family History Father , 86 Hypertension Heart disease Cerebrovascular accident Mother Diabetes mellitus Hypertension Thyroid disorder Social History Social History (Updated 03/10/23 @ 20:54 by Pratima Amaya PA-C) Social History: Surrogate medical decision maker: Collin Dillon, son. Code status: Full code. Smoking packs per day: 0.5 Smoking cigarettes per day: 10.0 Years smoked: 3 Smoking pack-years: 1.50 Smoking status: Former smoker Second hand tobacco smoke exposure: Yes Alcohol intake: current Drinks per week: 1 Alcohol use details: Rare alcohol use in moderation. Substance use: never Substance use type: does no
--- NOTE | 2023-03-11 11:45 | WPDGICN ---
Assessment and Plan Assessment and plan (1) Dysphagia: Code(s): R13.10 - Dysphagia, unspecified Status: Acute Assessment and Plan: will proceed with egd and peg placement she has not been eating or drinking lately (2) Squamous cell carcinoma of left tonsil: Code(s): C09.9 - Malignant neoplasm of tonsil, unspecified Status: Acute Assessment and Plan: will need to continue oncological treatment (3) GERD (gastroesophageal reflux disease): Code(s): K21.9 - Gastro-esophageal reflux disease without esophagitis Status: Acute Assessment and Plan: on ppi (4) Malnutrition: Code(s): E46 - Unspecified protein-calorie malnutrition Status: Acute Assessment and Plan: unable to eat (5) Odynophagia: Code(s): R13.10 - Dysphagia, unspecified Status: Acute GI Consult Note Consult date/time: 03/11/23 11:45 Reason for consult: dysphagia HPI: Ev Granado is a 57 year old female who is currently undergoing chemoradiation for left tonsil squamous cell carcinoma. She came here with progressive dysphagia and neck discomfort. She has completed 25 radiation treatments which caused worsening dysphagia and odynophagia, also being treated for mucositis. She is a nurse here at the hospital. She had EGD earlier this year with esophageal ring that was dilated with balloon up to 20 mm. She is hardly eating and is here for PEG placement. Review of Systems Constitutional: Constitutional: Denies chills Eyes: Eyes: Denies blurry vision ENT: Reports dysphagia Cardiovascular: Cardiovascular: Denies chest pain Respiratory: Respiratory: Denies chest congestion Gastrointestinal: Gastrointestinal: Reports nausea Genitourinary: Genitourinary: Denies hematuria Musculoskeletal: Musculoskeletal: Denies myalgias Integumentary/Breasts: Skin/Breast: Denies rash Neurologic: Denies confusion Psychiatric: Psychiatric: Denies behavioral changes [facility] Past Medical History Medical History (Updated 03/11/23 @ 11:56 by Eldon Martinez MD) Adenomatous colon polyp Arthritis Gastroesophageal reflux disease Hypothyroidism Malnutrition Odynophagia Squamous cell carcinoma of left tonsil Surgical History Surgical History (Updated 03/10/23 @ 20:53 by KYLAH YunC) History of cholecystectomy History of left knee surgery History of total right hip arthroplasty Family History Family History Father , 86 Hypertension Heart disease Cerebrovascular accident Mother Diabetes mellitus Hypertension Thyroid disorder Social History Social History (Updated 03/10/23 @ 20:54 by Pratima mAaya PA-C) Social History: Surrogate medical decision maker: Collin Dillon, son. Code status: Full code. Smoking packs per day: 0.5 Smoking cigarettes per day: 10.0 Years smoked: 3 Smoking pack-years: 1.50 Smoking status: Former smoker Second hand tobacco smoke exposure: Yes Alcohol intake: current Drinks per week: 1 Alcohol use details: Rare alcohol use in moderation. Substance use: never Substance use type: does not use Lack of Transportation: No Lack of Food: Never True Current Housing: I Have Housing Concerned About Future Housing: No Difficulty Paying Gas/Electric Bills: No Difficulty Paying for Meds: No Currently Unemployed: Decline to Answer Education: Associate Degree Difficulty w/ Childcare or Family Care: No Living arrangements: with family Occupation/Education: occupation Additional occupation/education comments: RN at [employer]. Spiritual care concerns: No Agree to blood products: Yes Meds Home Medications and Allergies Home Medications Medication Instructions Recorded Confirmed Type omeprazole 20 mg capsule,delayed 20 mg PO DAILY 12/30/21 03/10/23 History release levothyroxine 88
--- NOTE | 2023-03-11 12:14 | SUR.OPER ---
1213 4 X 4 DRAIN SPONGE PLACED AROUND G-TUBE AND SECURED WITH TAPE BY Mario GREENE RN
--- NOTE | 2023-03-11 12:16 | SUR.OPER ---
1216 REPORT CALLED TO ILSA HOOD RN. UPDATE GIVEN ON PATIENT'S PROCEDURE
--- NOTE | 2023-03-11 12:45 | PC.NURSE ---
Patient back to floor from GI lab via stretcher.
[2023-03-11] MEDS: KETOROLAC 15 MG/ML VIAL (*BKC) IV PUSH ×2 (13:14→23:57)
--- NOTE | 2023-03-11 13:32 | PCDIET ---
TUBE FEEDING RECOMMENDATIONS: Jevity 1.5 - bolus 8 oz (237 ml) 5x per day. Total 1775 kcal, 75.5 g protein, 900 ml free water. Flush 200 ml free water with each bolus. Monitor for nausea, bowel function, abdominal pain. Dietitian will follow up.
--- NOTE | 2023-03-11 16:51 | PCSTNOTE ---
Please refer to the Bedside Swallow Evaluation in the EMR. Please note, silent aspiration cannot be ruled out at bedside.
[2023-03-11] MEDS: PHENOL/SOD PHENO SPRAY CHERRY (*BKC) 1 SPRAY MUCOUS MEM (19:37)
--- NOTE | 2023-03-11 19:41 | PC.NURSE ---
Patient has temp of 100.8, patient does not want medication at this time.
[2023-03-12] VITALS: TEMP 37.8
[2023-03-12] MEDS: MAGNES & ALUM HYD/SIMETH/DIPHENHYD/LIDOCAINE 119 ML MOUTHWASH BY MOUTH ×4 (00:01→12:05)
[2023-03-12 05:17] VITALS: BP 136/87; PULSE 92; RESP 20; TEMP 37.7; O2SAT 100
[2023-03-12 05:28] LABS: Basophils Percent Auto 0.8 % (0.2-1.2); Eosinophils Percent Auto 1.7 % (0-4.4); Hematocrit 29.2 % (37.0-47.0); Hemoglobin 9.7 g/dL (12.0-15.0); Lymphocytes Absolute Auto 0.25 K/mm3 (0.9-3.2); Lymphocytes Percent Auto 10.4 % (18.3-44.2); Mean Corpuscular HGB Conc 33.2 g/dl (32-36); Mean Corpuscular Hemoglobin 30.2 pg (26-34); Mean Platelet Volume 8.6 fl (7.4-10.4); Monocytes Absolute Auto 0.4 K/mm3 (0.1-0.6); Monocytes Percent Auto 17.9 % (2.6-8.5); Neutrophils Absolute Auto 1.7 K/mm3 (1.3-6.7); Neutrophils Percent Auto 69.2 % (45.5-73.1); Platelet Count Result 187 k/mm3 (150-375); Red Blood Count 3.21 M/mm3 (4.2-5.4); Red Cell Distribution Width 13.2 % (11.5-14.5); White Blood Count 2.4 K/mm3 (4.5-10.0)
[2023-03-12 05:47] LABS: Alanine Aminotransferase 19 U/L (6-35); Albumin Level 3.4 g/dL (3.5-5.1); Alkaline Phosphatase 65 U/L (38-126); Anion Gap 6 mmol/L (8-16); Aspartate Amino Transferase 21 U/L (14-36); Bilirubin,Total 0.5 mg/dL (0.2-1.3); Blood Urea Nitrogen 14 mg/dL (7-17); Calcium 8.1 mg/dL (8.4-10.2); Carbon Dioxide 27 mmol/L (22-30); Chloride 103 mmol/L (98-107); Estimated CRCL calculation 83 ml/min; Estimated Glomerular Filt Rate > 60; Glucose 98 mg/dL (65-110); Magnesium 1.8 mg/dL (1.6-2.3); Potassium 3.8 mmol/L (3.4-5.0); Sodium 136 mmol/L (137-145)
[2023-03-12 07:19] LABS: T4 Thyroxine 9.32 ug/dL (5.53-11.0)
[2023-03-12] MEDS: PANTOPRAZOLE SODIUM IV 40 MG VIAL IV PUSH (08:11)
--- NOTE | 2023-03-12 09:02 | PM.IMPN ---
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 Still needs to complete 10 more treatments. increased difficulty with swallowing follows with Dr Mendes here to be evaluated for a PEG tube NPO at midnight Dr Mae consulted and appreciate rec's s/p PEG tube. Okay to use after 6 hours from placement (1800 on 03/11). consult dietitian for rec's on feeding----Jevity 1.5 - bolus 8 oz (237 ml) 5x per day. Total 1775 kcal, 75.5 g protein, 900 ml free water. Flush 200 ml free water with each bolus. Monitor for nausea, bowel function, abdominal pain. Dietitian will follow up. consult ST for dysphagia---agree with PEG tube for nutrition as her swallowing will effect her nutritional intake. (2) Squamous cell carcinoma of left tonsil: Code(s): C09.9 - Malignant neoplasm of tonsil, unspecified Status: Acute Assessment and Plan: see above (3) Hypothyroidism: Code(s): E03.9 - Hypothyroidism, unspecified Status: Acute Assessment and Plan: Continue home levothyroxine 88 mcg PO daily last set of labs were normal in 06/2022 Patient has not been taking this medication due to pain and dysphagia re-check TSH, T3, T4 in the am TSH normal, T4 normal, T3 pending (4) Gastroesophageal reflux disease: Code(s): K21.9 - Gastro-esophageal reflux disease without esophagitis Status: Acute Assessment and Plan: Taking omeprazole 20 mg PO daily continue while inpatient Plan Feeding:NPO, jevity 1.5 Analgesia: tylenol Thromboembolic prophylaxis: scd Ulcer prophylaxis: PPI Glycemic control: NA Bowel regimen: NA Lines: PIV Antibiotics: NA Disposition: Home with tube feeding. Repeat CBC, obtain chest x-ray. If both are normal then she can discharge this afternoon once her tube feedings have been approved. Subjective Date/time seen: 03/12/23 09:02 Interval history: HPI obtained from chart, This is a very pleasant 57-year-old currently undergoing chemoradiation for left tonsil squamous cell carcinoma who presented to the emergency department via private vehicle with difficulties swallowing. The patient provides the following history. She has completed 25 radiation treatments and with each treatment it seems as though she has worsening dysphagia and odynophagia. She has been battling moderate mucositis as well for which she is using Magic mouthwash. She is losing weight and has difficulties with oral intake recently due to the aforementioned symptoms. She was referred to the ER today for admission and consideration of G-tube during treatment. At the time my evaluation she is spitting up a good amount of thick, clear mucus though she denies having troubles managing her secretions. No significant abnormalities were noted on labs though sodium was a bit low at 135. She is not feeling short of breath. Her appetite is not good in her taste buds are altered. She has had some nausea. She denies fever, chills, and sweats. 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 She is lying on her left side and says that she just got comfortable as she has had throat pain as well as tenderness to her new G-tube site. She is hesitant to take opioids as she is sensitive to their effects. She was given Toradol for pain and she says that that helps to take the edge off. I discussed changing her pain pill to liquid. Besides her fatigue you can weakness, throat pain, and tenderness her G-tube site she has no complaints this time. Speech therapy will see her and evaluate her. Dietitian is on board and has posted recommendations for bolus feeding. Patient is able to manage her PEG tube at home independently. 03/12-patient had episode o
[2023-03-12 09:51] LABS: Basophils Percent Auto 0.4 % (0.2-1.2); Eosinophils Percent Auto 0.8 % (0-4.4); Hematocrit 27.8 % (37.0-47.0); Hemoglobin 9.3 g/dL (12.0-15.0); Lymphocytes Absolute Auto 0.25 K/mm3 (0.9-3.2); Lymphocytes Percent Auto 10.3 % (18.3-44.2); Mean Corpuscular HGB Conc 33.5 g/dl (32-36); Mean Corpuscular Hemoglobin 30.2 pg (26-34); Mean Corpuscular Volume 90.3 fl (80-100); Mean Platelet Volume 8.3 fl (7.4-10.4); Monocytes Absolute Auto 0.4 K/mm3 (0.1-0.6); Monocytes Percent Auto 16.5 % (2.6-8.5); Neutrophils Absolute Auto 1.7 K/mm3 (1.3-6.7); Platelet Count Result 183 k/mm3 (150-375); Red Blood Count 3.08 M/mm3 (4.2-5.4); Red Cell Distribution Width 13.2 % (11.5-14.5); White Blood Count 2.4 K/mm3 (4.5-10.0)
[2023-03-12 10:27] LABS: Immature Reticulocyte Fraction 7.3 % (3.0-15.9); Reticulocyte Percent 1.57 % (0.7-4.3); Reticulocytes Absolute 0.05 M/mm3 (0.02-0.1)
[2023-03-12 10:33] LABS: Lactate Dehydrogenase 155 U/L (120-246)
--- NOTE | 2023-03-12 13:18 | WPDANESPN ---
Anes - Prog Note Post-Op Date/Time: 03/12/23 13:18 Vital Signs: Last Vital Signs Temp 37.7 C H 03/12/23 05:17 Pulse 92 03/12/23 05:17 Resp 20 03/12/23 05:17 BP 136/87 03/12/23 05:17 Pulse Ox 100 03/12/23 05:17 O2 Del Method Room Air 03/12/23 08:00 Pain Score (VAS): 0 I/O: Intake & Output 03/11/23 03/12/23 03/12/23 23:59 07:59 15:59 Intake Total 0 440 Balance 0 440 Laboratory Tests 03/12/23 09:45 03/12/23 05:14 03/12/23 03/12/23 03/12/23 05:10 05:14 09:43 WBC 2.4 L RBC 3.21 L Hgb 9.7 L Hct 29.2 L MCV 91.0 MCH 30.2 MCHC 33.2 RDW 13.2 Plt Count 187 MPV 8.6 Immature Gran % (Auto) 0.0 Neut % (Auto) 69.2 Lymph % (Auto) 10.4 L [place] % (Auto) 17.9 H Eos % (Auto) 1.7 Baso % (Auto) 0.8 Lymph # (Auto) 0.25 L [place] # (Auto) 0.4 Eos # (Auto) 0.0 Baso # (Auto) 0.0 Abs Immat Gran (auto) 0.00 Absolute Neuts (auto) 1.7 Absolute Nucleated RBC 0.0 Nucleated RBC % 0.0 Absolute Retic 0.05 Percent Retic 1.57 Immature Retic Fraction 7.3 Retic Hgb Content 35.0 Sodium 136 L Potassium 3.8 Chloride 103 Carbon Dioxide 27 Anion Gap 6 L BUN 14 D Creatinine 0.70 Estim Creat Clear Calc 83 Estimated GFR > 60 Glucose 98 Calcium 8.1 L Magnesium 1.8 Total Bilirubin 0.5 AST 21 ALT 19 Alkaline Phosphatase 65 Lactate Dehydrogenase 155 Total Protein 6.0 L Albumin 3.4 L TSH (Reflex) 1.670 Thyroxine (T4) 9.32 Free T3 pg/mL Pending 03/12/23 09:45 WBC 2.4 L RBC 3.08 L Hgb 9.3 L Hct 27.8 L MCV 90.3 MCH 30.2 MCHC 33.5 RDW 13.2 Plt Count 183 MPV 8.3 Immature Gran % (Auto) 0.0 Neut % (Auto) 72.0 Lymph % (Auto) 10.3 L [place] % (Auto) 16.5 H Eos % (Auto) 0.8 Baso % (Auto) 0.4 Lymph # (Auto) 0.25 L [place] # (Auto) 0.4 Eos # (Auto) 0.0 Baso # (Auto) 0.0 Abs Immat Gran (auto) 0.00 Absolute Neuts (auto) 1.7 Absolute Nucleated RBC 0.0 Nucleated RBC % 0.0 Absolute Retic Percent Retic Immature Retic Fraction Retic Hgb Content Sodium Potassium Chloride Carbon Dioxide Anion Gap BUN Creatinine Estim Creat Clear Calc Estimated GFR Glucose Calcium Magnesium Total Bilirubin AST ALT Alkaline Phosphatase Lactate Dehydrogenase Total Protein Albumin TSH (Reflex) Thyroxine (T4) Free T3 pg/mL Patient Feedback: Patient satisfied with anesthetic care.
[2023-03-12 14:00] VITALS: BP 118/79; PULSE 92; RESP 16; TEMP 37.3; O2SAT 99
--- NOTE | 2023-03-12 14:37 | PM.DS ---
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 Still needs to complete 10 more treatments. increased difficulty with swallowing follows with Dr Mendes here to be evaluated for a PEG tube NPO at midnight Dr Mae consulted and appreciate rec's s/p PEG tube. Okay to use after 6 hours from placement (1800 on 03/11). consult dietitian for rec's on feeding----Jevity 1.5 - bolus 8 oz (237 ml) 5x per day. Total 1775 kcal, 75.5 g protein, 900 ml free water. Flush 200 ml free water with each bolus. Monitor for nausea, bowel function, abdominal pain. Dietitian will follow up. consult ST for dysphagia---agree with PEG tube for nutrition as her swallowing will effect her nutritional intake. (2) Squamous cell carcinoma of left tonsil: Code(s): C09.9 - Malignant neoplasm of tonsil, unspecified Status: Acute Assessment and Plan: see above (3) Hypothyroidism: Code(s): E03.9 - Hypothyroidism, unspecified Status: Acute Assessment and Plan: Continue home levothyroxine 88 mcg PO daily last set of labs were normal in 06/2022 Patient has not been taking this medication due to pain and dysphagia re-check TSH, T3, T4 in the am TSH normal, T4 normal, T3 pending (4) Gastroesophageal reflux disease: Code(s): K21.9 - Gastro-esophageal reflux disease without esophagitis Status: Acute Assessment and Plan: Taking omeprazole 20 mg PO daily continue while inpatient Plan Feeding:NPO, jevity 1.5 Analgesia: tylenol Thromboembolic prophylaxis: scd Ulcer prophylaxis: PPI Glycemic control: NA Bowel regimen: NA Lines: PIV Antibiotics: NA Disposition: Home with tube feeding. Repeat CBC, obtain chest x-ray. If both are normal then she can discharge this afternoon once her tube feedings have been approved. DS: Summary Hospital Course Hospital Course: HPI obtained from chart, This is a very pleasant 57-year-old currently undergoing chemoradiation for left tonsil squamous cell carcinoma who presented to the emergency department via private vehicle with difficulties swallowing. The patient provides the following history. She has completed 25 radiation treatments and with each treatment it seems as though she has worsening dysphagia and odynophagia. She has been battling moderate mucositis as well for which she is using Magic mouthwash. She is losing weight and has difficulties with oral intake recently due to the aforementioned symptoms. She was referred to the ER today for admission and consideration of G-tube during treatment. At the time my evaluation she is spitting up a good amount of thick, clear mucus though she denies having troubles managing her secretions. No significant abnormalities were noted on labs though sodium was a bit low at 135. She is not feeling short of breath. Her appetite is not good in her taste buds are altered. She has had some nausea. She denies fever, chills, and sweats. 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 She is lying on her left side and says that she just got comfortable as she has had throat pain as well as tenderness to her new G-tube site.? She is hesitant to take opioids as she is sensitive to their effects.? She was given Toradol for pain and she says that that helps to take the edge off.? I discussed changing her pain pill to liquid.? Besides her fatigue you can weakness, throat pain, and tenderness her G-tube site she has no complaints this time.? Speech therapy will see her and evaluate her.? Dietitian is on board and has posted recommendations for bolus feeding.? Patient is able to manage her
[2023-03-12] MEDS: KETOROLAC 15 MG/ML VIAL (*BKC) IV PUSH (15:10)
--- NOTE | 2023-03-12 15:24 | WPDGIPROGNO ---
Progress Note: A&P Assessment and Plan (1) Dysphagia: Code(s): R13.10 - Dysphagia, unspecified Status: Acute Assessment and Plan: g tube working ok recommend to slow down feeding and always being in upright position (complaining of some regurgitation)and continue with ppi (2) Odynophagia: Code(s): R13.10 - Dysphagia, unspecified Status: Acute (3) Malnutrition: Code(s): E46 - Unspecified protein-calorie malnutrition Status: Acute Assessment and Plan: now she will keep using tube feeding (4) Gastroesophageal reflux disease: Code(s): K21.9 - Gastro-esophageal reflux disease without esophagitis Status: Acute Assessment and Plan: ppi (5) Squamous cell carcinoma of left tonsil: Code(s): C09.9 - Malignant neoplasm of tonsil, unspecified Status: Acute Assessment and Plan: follow-up by oncology, treatment as outpatient (6) Anemia: Code(s): D64.9 - Anemia, unspecified Status: Acute Subjective Date/time seen: 03/12/23 15:24 Interval history: tolerating tube feeding, she says that if given quickly when will have regurgitation but otherwise doing ok and willing to go home soon Review of Systems Review of Systems: All systems reviewed & are unremarkable except as noted in HPI and below Exam Narrative: General: Well-developed, pleasant HEENT: PERRL, EOMI. Sclera anicteric. Moderate mucositis of oropharyngeal region. Neck: Supple. Mild tenderness left sided neck Respiratory: Respirations are nonlabored and lungs are clear to auscultation bilaterally. Cardiovascular: Regular rate and rhythm with S1-S2. Gastrointestinal: Abdomen is soft, nontender, and nondistended with positive bowel sounds. G-tube in place, no rebound Skin: Warm and dry. No rash or lesions on limited exam. Extremities: No cyanosis, clubbing, or edema. Neurological: Alert. Cranial nerves 2-12 are grossly intact. No gross focal deficits to casual conversation. Psychiatric: Pleasant and cooperative with normal mood and affect. Judgment and insight intact. Objective Data Vital Signs Vital Signs: Vital Signs - 24 hr 03/11/23 19:33 03/12/23 00:00 03/12/23 05:17 Temperature 100.8 F H 100.0 F H 99.9 F H Pulse Rate 116 H 92 Respiratory Rate 20 20 Blood Pressure 137/78 136/87 Pulse Oximetry 98 100 Oxygen Delivery 03/12/23 08:00 03/12/23 14:00 Temperature 99.1 F Pulse Rate 92 Respiratory Rate 16 Blood Pressure 118/79 Pulse Oximetry 99 Oxygen Delivery Room Air Intake/Output Intake/Output: Intake & Output 03/09/23 03/10/23 03/11/23 03/12/23 23:59 23:59 23:59 23:59 Intake Total 1999 200 440 Balance 1999 200 440 Meds/Results Medications: Active Medications Generic Name Dose Route Start Last Admin Trade Name Freq PRN Reason Stop Dose Admin Acetaminophen 1,000 mg 03/11/23 21:30 Acetaminophen Elixir 325 Mg/10.15 Ml Udc FEED TUBE Q6H PRN Fever Acetaminophen/Codeine Phosphate 5 ml 03/11/23 15:18 Acetaminophen/Codeine Elixir (*Crx) 120-12 Mg/5 Ml Udc PO Q4H PRN Pain Rated 1-3 Ketorolac Tromethamine 15 mg 03/11/23 12:55 03/12/23 15:10 Ketorolac 15 Mg/Ml Vial (*Bkc) IV PUSH 15 mg Q6H PRN Administration Pain Rated 4-6 Levothyroxine Sodium 88 mcg 03/12/23 06:30 03/12/23 05:17 Levothyroxine Sodium 88 Mcg Tablet FEED TUBE Not Given DAILY@0630 [facility] Lidocaine/Diphenhydr/Alum/Mg/Simeth 5 ml 03/10/23 21:00 03/12/23 12:05 Magnes & Alum Hyd/Simeth/Diphenhyd/Lidocaine 119 Ml Mouthwash BY MOUTH 04/09/23 20:59 5 ml Q4HR OPAL Administration Morphine Sulfate 2 mg 03/11/23 13:01 Morphine Sulfate (*Crx) 2 Mg/Ml Inj IV PUSH Q2H PRN Pain Rated 7-10 Ondansetron HCl 4 mg 03/10/23 21:06 Ondansetron Inj 4 Mg/2 Ml Vial IV PUSH Q6H PRN Nausea And Vomiting Pantoprazole Sodium 40 mg 03/11/23 09:00 03/12/23 08:11 Pantoprazole
[2023-03-12 15:45] LABS: Iron 28 ug/dL (37-170)
--- NOTE | 2023-03-12 16:49 | PDONCCN ---
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 She started chemoradiation therapy with cisplatin on February 04, 2023. She received cycle 2 of chemotherapy on 11/11/2022. She came into the hospital with difficulty swallowing with throat pain. She has been using Magic mouthwash. Labs in the hospital showed pancytopenia. She denies any bleeding and bruising. She has been losing weight and almost lost 12 lb weight since the last visit in the office. She has been complaining of thick mucus with phlegm production. No fevers and chills. Patient underwent PEG tube placement yesterday by Dr. Mae and started tube feeding last night. Review of Systems - Review of Systems All systems reviewed & are unremarkable except as noted in HPI and bel - Neurologic Denies behavioral changes, Denies confusion PMFSH Medical History: Medical History (Last Updated 03/12/23 @ 15:26 by Eldon Martinez MD) Adenomatous colon polyp Anemia Arthritis Gastroesophageal reflux disease Hypothyroidism Malnutrition Odynophagia Squamous cell carcinoma of left tonsil Surgical History: Surgical History (Last Updated 03/10/23 @ 20:53 by Pratima Amaya PA-C) History of cholecystectomy History of left knee surgery History of total right hip arthroplasty Family History: Family History (Last Reviewed 03/10/23 @ 20:53 by Pratima Amaya PA-C) Father , 86 Hypertension Heart disease Cerebrovascular accident Mother Diabetes mellitus Hypertension Thyroid disorder - Social History Social History: Social History (Last Updated 03/10/23 @ 20:54 by Pratima Amaya PA-C) Alcohol Use: Alcohol intake: current Drinks per week: 1 Alcohol use details: Rare alcohol use in moderation. Substance Use: Substance use: never Substance use type: does not use Others: Spiritual care concerns: No Agree to blood products: Yes Living Arrangements: Living arrangements: with family Oppucation/Education: Occupation/Education: occupation Smoking Status: Smoking status: Former smoker Second hand tobacco smoke exposure: Yes Smoking Pack-years: Smoking packs per day: 0.5 Smoking cigarettes per day: 10.0 Years smoked: 3 Smoking pack-years: 1.50 Social Determinants of Health: Has the Lack of Transportation Kept You From Medical Appointments or From Getting Medications?: No Within the Past 12 Months, Were You Worried Whether Your Food Would Run Out Before You Got Money to Buy More?: Never True What is Your Housing Situation Today?: I Have Housing Are You Worried That in the Next 2 Months, You May Not Have Your Own Housing to Live In?: No Do You Have Trouble Paying Your Heating Or Electricity Bill?: No Do You Have Trouble Paying For Medicines?: No Are You Currently Unemployed and Looking for Work?: Decline to Answer Highest Level of Education Completed: Associate Degree Do You Have Trouble With Childcare or the Care of a Family Member?: No Exam - Vital Signs Vital Signs - 24 hr 03/11/23 19:33 03/12/23 00:00 03/12/23 05:17 Temperature 38.2 C H 37.8 C H 37.7 C H Pulse Rate 116 H 92 Respiratory Rate 20 20 Blood Pressure 137/78 136/87 Pulse Oximetry 98 100 Oxygen Delivery 03/12/23 08:00 03/12/23 14:00 Temperature 37.3 C Pulse Rate 92 Respiratory Rate 16 Blood Pressure 118/79 Pulse Oximetry 99 Oxygen Delivery Room Air - Exam HEENT: EOMI, PERRLA, mucous membranes moist and pink, oropharynx exudative Neck: supple. No: MAGALIS Zaragoza
[2023-03-12 16:55] LABS: Percent Iron Saturation 12 % (20-50)
== END 2023-03-12 17:40 | disposition home or self-care (01) ==
LOC: ANHED 13:53 → ANH3MED 19:29 → ANH3MEDSUR 03-13 09:46 → ANH3MED 03-13 09:46
PROVIDERS: Internal Medicine Gastroenterology; Nurse Practitioner Acute Care; Admitting Provider Hospitalist; Emergency Provider Emergency Medicine; PCP Physician Assistant Medical; Visit Provider Internal Medicine
PROC: 0DH63UZ Insertion of Feeding Device into Stomach, Percutaneous Approach (ICD-10-PCS; CPT 43246; principal; 2023-03-11 12:00)
DX: R13.10 Dysphagia, unspecified (principal); C09.9 Malignant neoplasm of tonsil, unspecified; K21.9 Gastro-esophageal reflux disease without esophagitis; E03.9 Hypothyroidism, unspecified; E07.9 Disorder of thyroid, unspecified; D64.9 Anemia, unspecified; E87.1 Hypo-osmolality and hyponatremia; E46 Unspecified protein-calorie malnutrition; A63.0 Anogenital (venereal) warts; K12.30 Oral mucositis (ulcerative), unspecified; R63.4 Abnormal weight loss; Z68.27 Body mass index [BMI] 27.0-27.9, adult; R00.0 Tachycardia, unspecified; R05.9 Cough, unspecified; R50.9 Fever, unspecified; F10.90 Alcohol use, unspecified, uncomplicated; Z92.3 Personal history of irradiation; Z87.891 Personal history of nicotine dependence; Z79.60 Long term (current) use of unspecified immunomodulators and immunosuppressants; Z79.899 Other long term (current) drug therapy; Z84.89 Family history of other specified conditions
CPT/HCPCS: 36415; 43246; 71045; 80053; 82607; 82746; 83540; 83550; 83615; 83735; 84436; 84443; 84480; 85025; 85046; 85610; 85730; 92610; 96361; 96374; 99285; A9270; C9113; G0378; J0690; J1741; J1885; J2001; J2405; J2704; J3010; J7030; J7120

== ENCOUNTER 2023-04-02 16:01 | Inpatient (IN) | payer OTHER, SELFPAY ==
[2023-04-02] VITALS (31 sets, daily range): BP systolic 113–141; BP diastolic 72–97; PULSE 97–133; RESP 9–28; TEMP 36.4–36.6; O2SAT 98–100; BMI 25.9
--- NOTE | ~2023-04-02 | XR_ITS ---
EXAMINATION: XR chest 1V portable DATE: 04/02/2023 20:32 INDICATION: Leukopenia. TECHNIQUE: A single frontal view of the chest was obtained. COMPARISON: Chest single view 03/12/2023 FINDINGS: There is no pneumonia, pleural effusion, or pneumothorax. The heart size is normal. IMPRESSION: 1. No acute cardiopulmonary disease. Reviewed, dictated and finalized at location E. [facility]
[2023-04-02] MEDS: SODIUM CHLORIDE 0.9% IV 1,000 ML 999 ML IV CONT (16:59)
--- NOTE | 2023-04-02 17:13 | ED.GENADULT ---
HPI - General Adult General Chief complaint: Unspecified Stated complaint: sent by PCP for fluids Time Seen by Provider: 04/02/23 16:35 History of Present Illness HPI narrative: Patient is a 57-year-old female who presents ER for abnormal lab work. She had labs this morning that showed she was in renal failure and also was severely hyponatremic. Patient is receiving radiation to her throat for cancer. She has a G-tube for feeds. She reports due to pain she has been unable to swallow for 4 weeks. She has been doing her tube feeds and has been giving herself 500 mL of water daily however she has been vomiting up until 2 days ago. She has thick secretions. She has pain with talking so information is limited. Related Data Allergies Allergy/AdvReac Type Severity Reaction Status Date / Time No Known Drug Allergies Allergy Unknown Verified 03/24/23 10:31 Review of Systems Review of Systems: ROS unobtainable: Yes unobtainable due to medical condition PMFSH Past Medical History Medical History (Updated 04/02/23 @ 18:36 by Dedrick Hale MD) Adenomatous colon polyp Anemia Arthritis Gastroesophageal reflux disease Hypothyroidism Malnutrition Odynophagia Squamous cell carcinoma of left tonsil Surgical History Surgical History (Updated 03/12/23 @ 16:53 by Woody Mendes MD) History of cholecystectomy History of left knee surgery History of total right hip arthroplasty Family History Family History Father , 86 Hypertension Heart disease Cerebrovascular accident Mother Diabetes mellitus Hypertension Thyroid disorder Social History Social History (Updated 03/10/23 @ 20:54 by Pratima Amaya PA-C) Social History: Surrogate medical decision maker: Collin Dillon, son. Code status: Full code. Smoking packs per day: 0.5 Smoking cigarettes per day: 10.0 Years smoked: 3 Smoking pack-years: 1.50 Smoking status: Former smoker Second hand tobacco smoke exposure: Yes Alcohol intake: current Drinks per week: 1 Alcohol use details: Rare alcohol use in moderation. 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 HEAD: Normocephalic, atraumatic. ENT: Dry mucous membranes with thick secretions. NECK: Supple. CHEST: Clear to auscultation. No respiratory distress. HEART: Tachycardic and regular. Normal peripheral pulses. ABDOMEN: Soft, nontender, nondistended. EXTREMITIES: Normal range of motion. No edema. SKIN: Warm, dry, no rash. NEURO: Awake, alert, and seemingly oriented despite limitations of answering questions due to throat pain. PSYCH: Normal mood and affect. Course Course Emergency Course: Patient resting comfortably. Being hydrated with IV fluid. Excepted by hospitalist service. Patient aware of diagnosis and treatment plan Vital Signs Vital signs: Vital Signs Temperature 97.6 F 04/02/23 16:03 Pulse Rate 133 H 04/02/23 16:03 Respiratory Rate 16 04/02/23 16:03 Blood Pressure 129/95 H 04/02/23 16:03 Pulse Oximetry 100 04/02/23 16:03 Oxygen Delivery Room Air 04/02/23 16:03 Temperature 97.6 F 04/02/23 16:03 Pulse Rate 108 H 04/02/23 17:30 Respiratory Rate 16 04/02/23 17:30 Blood Pressure 132/95 H 04/02/23 17:21 Pulse Oximetry 99 04/02/23 16:34 [employer]
[2023-04-02] MEDS: SODIUM CHLORIDE 0.9% IV 1,000 ML 150 ML IV CONT (19:39)
--- NOTE | 2023-04-02 20:00 | PM.IMHP ---
H&P: HPI History of Present Illness Date/Time: 04/02/23 20:00 Chief Complaint: Abnormal Labs Narrative: Patient is a 57-year-old female who presents ER for abnormal lab work.? She had labs this morning that showed she was in renal failure and also was severely hypernatremic.? Patient is receiving radiation to her throat for cancer.? She has a G-tube for feeds.? She reports due to pain she has been unable to swallow for 4 weeks.? She has been doing her tube feeds and has been giving herself 500 mL of water daily however she has been vomiting up until 2 days ago.? She has thick secretions.? She has pain with talking so information is limited. She denied fever, abdominal pain, urinary symptoms or chills. Seh said she has been weak from not getting enough fluid. Evaluation in the ED showed that she is hypernatremic with sodium level of 162,a nd also has acute kidney injury. She has been given a bolus of normal saline, she feels better but still weak Review of Systems Review of Systems: All systems reviewed & are unremarkable except as noted in HPI and below PMFSH Past Medical History Medical History (Updated 04/03/23 @ 00:21 by Ronda Silvestre MD) Adenomatous colon polyp Anemia Arthritis Gastroesophageal reflux disease Hypothyroidism Malnutrition Odynophagia Squamous cell carcinoma of left tonsil Surgical History Surgical History (Updated 03/12/23 @ 16:53 by Woody Mendes MD) History of cholecystectomy History of left knee surgery History of total right hip arthroplasty Family History Family History Father , 86 Hypertension Heart disease Cerebrovascular accident Mother Diabetes mellitus Hypertension Thyroid disorder Social History Social History (Updated 03/10/23 @ 20:54 by Pratima Amaya PA-C) Social History: Surrogate medical decision maker: Collin Dillon, son. Code status: Full code. Smoking packs per day: 0.5 Smoking cigarettes per day: 10.0 Years smoked: 3 Smoking pack-years: 1.50 Smoking status: Former smoker Second hand tobacco smoke exposure: Yes Alcohol intake: never Drinks per week: 1 Alcohol use details: Rare alcohol use in moderation. 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 Agree to blood products: Yes Meds Home Medications and Allergies Home Medications Medication Instructions Recorded Confirmed Type pantoprazole 40 mg granules 40 mg feeding tube DAILY #30 ea 03/12/23 04/02/23 Rx delayed-release for susp in packet (Protonix) benzocaine 10 % oral rinse 10 ml mucous membrane Q4H PRN 04/03/23 04/03/23 History suspension (OraMagic Plus) Mouth Pain Allergies Allergy/AdvReac Type Severity Reaction Status Date / Time No Known Drug Allergies Allergy Unknown Verified 03/24/23 10:31 Vital Signs Vital Signs - 24 hr 04/02/23 16:03 04/02/23 16:36 04/02/23 16:34 Temperature 97.6 F Pulse Rate 133 H 119 H 120 H Respiratory Rate 16 14 Blood Pressure 129/95 H 128/95 H Pulse Oximetry 100 99 Oxygen Delivery Room Air 04/02/23 16:38 04/02/23 16:45 04/02/23 16:46 Temperature Pulse Rate 119 H 119 H 114 H Respiratory Rate 17 13 13 Blood Pressure Pulse Oximetry Oxygen Delivery 04/02/23 17:00 04/02/23 17:01 04/02/23 17:15 Temperature Pulse Rate 113 H 109 H 105 H Respiratory Rate 18 14 21 H Blood Pressure 139/96 H Pulse Oximetry Oxygen Delivery
--- NOTE | 2023-04-02 21:09 | ADMGEN ---
This patient, Ev Granado, was admitted to Medical Room 254-01. Patient/family oriented to hospital policies and general routines including ID bracelet, bed and alarms, visiting hours, pain management, procedures, bathroom and other care routines, personal items, smoking policy, room service/diet, and visiting hours. Information on how to activate the Rapid Response Team has been discussed. Patient/Family are encouraged to report perceived risks to care and to ask questions if they do not understand what they are told or what they should do.
[2023-04-02] MEDS: DEXTROSE 5% 1,000 ML 1,000 ML 200 ML IV CONT (22:09)
[2023-04-03] MEDS: DEXTROSE 5% 1,000 ML 1,000 ML 150 ML IV CONT ×2 (04:18→09:46)
[2023-04-03 05:50] LABS: Hemoglobin 9.2 g/dL (12.0-15.0); Mean Corpuscular HGB Conc 30.7 g/dl (32-36); Mean Corpuscular Hemoglobin 30.1 pg (26-34); Mean Platelet Volume 9.2 fl (7.4-10.4); Platelet Count Result 158 k/mm3 (150-375); Red Blood Count 3.06 M/mm3 (4.2-5.4); Red Cell Distribution Width 14.2 % (11.5-14.5)
[2023-04-03 05:56] LABS: Anion Gap 8 mmol/L (8-16); Blood Urea Nitrogen 53 mg/dL (7-17); Calcium 9.1 mg/dL (8.4-10.2); Carbon Dioxide 34 mmol/L (22-30); Chloride 116 mmol/L (98-107); Estimated CRCL calculation 32 ml/min; Estimated Glomerular Filt Rate 31; Glucose 134 mg/dL (65-110); Potassium 3.7 mmol/L (3.4-5.0); Sodium 158 mmol/L (137-145)
[2023-04-03 06:39] LABS: White Blood Count 1.1 K/mm3 (4.5-10.0)
[2023-04-03 06:41] LABS: Band Neutrophils Percent 21 % (0-6); Basophils Absolute Manual 0.02 K/mm3 (0.0-0.1); Basophils Percent Manual 2 % (0-1); Eosinophils Absolute Manual 0.02 K/mm3 (0.02-0.5); Eosinophils Percent Manual 2 % (0-4); Lymphocytes Absolute Manual 0.25 K/mm3 (1.1-4.5); Lymphocytes Percent Manual 23.2 % (18-44); Monocytes Absolute Manual 0.07 K/mm3 (0.1-0.90); Monocytes Percent Manual 7 % (3-9); Neutrophils Absolute Manual 0.72 K/mm3 (1.7-7.2); Neutrophils Percent Manual 45 % (46-73); Total Cells Counted 53
[2023-04-03 06:43] LABS: Hypochromasia 1+ (NORMAL); Platelet Estimate Adequate (Adequate)
[2023-04-03 06:44] LABS: Schistocytes None Seen (NORMAL)
[2023-04-03 06:53] VITALS: BP 142/91; PULSE 100; RESP 16; TEMP 36.6; O2SAT 100
[2023-04-03] MEDS: LANSOPRAZOLE ORAL SUSP 30 MG/10 ML ORAL.SUSP FEED TUBE (09:28)
[2023-04-03] MEDS: MAGNES & ALUM HYD/SIMETH/DIPHENHYD/LIDOCAINE 119 ML MOUTHWASH BY MOUTH ×4 (11:15→21:12)
[2023-04-03 11:42] LABS: Appearance Urine Clear (Clear); Bilirubin Urine Negative (Negative); Blood Urine Negative (Negative); Color Urine Yellow (Yellow); Glucose Urine UA Negative (Negative); Ketones Urine Negative (Negative); Leukocyte Esterase Ur Negative LEU/UL (Negative); Nitrate Urine Negative (Negative); Protein Urine Negative (Negative); Specific Grav Ur 1.012 (1.001-1.035); Urobilinogen Urine 0.2 mg/dL (<2.0)
[2023-04-03 12:00] VITALS: BP 130/80; PULSE 100; RESP 16; TEMP 36.6; O2SAT 100
[2023-04-03 12:12] LABS: Add Urine Microscopic? NO
[2023-04-03 12:24] LABS: Anion Gap 9 mmol/L (8-16); Blood Urea Nitrogen 47 mg/dL (7-17); Calcium 8.7 mg/dL (8.4-10.2); Carbon Dioxide 32 mmol/L (22-30); Chloride 113 mmol/L (98-107); Estimated CRCL calculation 36 ml/min; Estimated Glomerular Filt Rate 36; Glucose 122 mg/dL (65-110); Potassium 3.3 mmol/L (3.4-5.0); Sodium 154 mmol/L (137-145)
[2023-04-03] MEDS: POTASSIUM CHLORIDE 20 MEQ PACKET (FOR LIQUID) 40 MEQ PO (13:31)
[2023-04-03 13:48] VITALS: BMI 25.9
--- NOTE | 2023-04-03 14:03 | PM.IMPN ---
Progress Note: A&P Assessment and Plan (1) MORALES (acute kidney injury): Code(s): N17.9 - Acute kidney failure, unspecified Status: Acute Assessment and Plan: Patient found with a BUN and creatinine of 64/2.2. Patient states that her chemotherapy does have side effect of causing kidney injury. IV fluid hydration. Improving with treatment. UA without infection Continue to monitor. (2) Acute hypernatremia: Code(s): E87.0 - Hyperosmolality and hypernatremia Status: Acute Assessment and Plan: On presentation patient was found to have a sodium of 162. Originally given normal saline in the ED that was in transition to D 5 W. Lower sodium no more than 10 mEq Q 24 hours 100 mL per hour D5. Serial BMPs (3) Leukopenia: Code(s): D72.819 - Decreased white blood cell count, unspecified Status: Acute Assessment and Plan: Resulted chemotherapy. ACN of 726. Continue to monitor. 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 Continues to have pain with swallowing and at the site of radiation. Analgesics as needed. (5) Malnutrition: Code(s): E46 - Unspecified protein-calorie malnutrition Status: Acute Assessment and Plan: She is not tolerating her bolus feedings very well and dietary recommending continuous feeds through the night. Patient changed to continuous tube feedings overnight. Discontinue bolus feedings. Meets qualifications for severe malnutrition Subjective Date/time seen: 04/03/23 14:03 Interval history: Patient's last chemotherapy was May 19, 2023 and last radiation was March 28, 2023. Patient has completed both chemo and radiation. Her labs are improving with IV fluids. Will continue to monitor her closely. Monitor sodium so it does not drop too quickly. Will consider Nephrology consult if she does not improve. She does continue to have pain with swallowing and at the site of radiation. Exam Narrative: GENERAL: Comfortable, no acute distress HENMT: moist mucous membranes EYES: EOM intact b/l NECK: no lymphadenopathy RESPIRATORY: clear to auscultation CARDIO: RRR GI: soft, nontender, bowel sounds present SKIN: no rashes EXTREMITIES: no edema, redness or tenderness Objective Data Vital Signs Vital Signs: Vital Signs - 24 hr 04/02/23 16:03 04/02/23 16:36 04/02/23 16:34 Temperature 97.6 F Pulse Rate 133 H 119 H 120 H Respiratory Rate 16 14 Blood Pressure 129/95 H 128/95 H Pulse Oximetry 100 99 Oxygen Delivery Room Air 04/02/23 16:38 04/02/23 16:45 04/02/23 16:46 Temperature Pulse Rate 119 H 119 H 114 H Respiratory Rate 17 13 13 Blood Pressure Pulse Oximetry Oxygen Delivery 04/02/23 17:00 04/02/23 17:01 04/02/23 17:15 Temperature Pulse Rate 113 H 109 H 105 H Respiratory Rate 18 14 21 H Blood Pressure 139/96 H Pulse Oximetry Oxygen Delivery 04/02/23 17:21 04/02/23 17:30 04/02/23 17:41 Temperature Pulse Rate 104 H 108 H 105 H Respiratory Rate 16 Blood Pressure 132/95 H 134/90 Pulse Oximetry Oxygen Delivery 04/02/23 18:00 04/02/23 18:01 04/02/23 18:15 Temperature Pulse Rate 100 97 103 H Respiratory Rate 11 L 13 16 Blood Pressure 127/96 H Pulse Oximetry Oxygen Delivery 04/02/23 18:21 04/02/23 18:30 04/02/23 18:49 Temperature Pulse Rate 124 H Respiratory Rate 16 13 19 Blood Pressure 141/92 H Pulse Oximetry 98 Oxygen Delivery 04/02/23 19:00 04/02/23 19:15 04/02/23 19:30 Temperature Pulse Rate 104 H 113 H 114 H Respiratory Rate 12 16 16 Blood Pressure Pulse Oximetry Oxygen Delivery 04/02/23 19:36 04/02
--- NOTE | 2023-04-03 14:14 | PC.NURSE ---
On 04/03/23, the student, [Gareth Fontaine], provided care and completed [employer] documentation on this patient. I have reviewed the student's documentation and agree with the findings.
[2023-04-03 14:29] VITALS: BP 134/65; PULSE 91; RESP 18; TEMP 36.6; O2SAT 96
[2023-04-03 16:00] VITALS: BP 139/79; PULSE 99; RESP 16; TEMP 36.7; O2SAT 100
[2023-04-03] MEDS: DEXTROSE 5% 1,000 ML 1,000 ML 100 ML IV CONT (17:41)
[2023-04-03 18:55] LABS: Anion Gap 7 mmol/L (8-16); Blood Urea Nitrogen 42 mg/dL (7-17); Calcium 8.6 mg/dL (8.4-10.2); Carbon Dioxide 32 mmol/L (22-30); Chloride 112 mmol/L (98-107); Estimated CRCL calculation 42 ml/min; Estimated Glomerular Filt Rate 42; Glucose 112 mg/dL (65-110); Potassium 3.6 mmol/L (3.4-5.0); Sodium 151 mmol/L (137-145)
[2023-04-03 22:41] VITALS: BP 126/74; PULSE 100; RESP 16; TEMP 36.9; O2SAT 100
[2023-04-04 01:08] VITALS: BP 136/74; PULSE 103; RESP 16; TEMP 36.4; O2SAT 98
[2023-04-04] MEDS: MAGNES & ALUM HYD/SIMETH/DIPHENHYD/LIDOCAINE 119 ML MOUTHWASH BY MOUTH ×6 (02:00→20:58)
[2023-04-04] MEDS: DEXTROSE 5% 1,000 ML 1,000 ML 100 ML IV CONT (03:49)
[2023-04-04 04:00] VITALS: BP 141/78; PULSE 100; RESP 16; TEMP 36.6; O2SAT 99
[2023-04-04 05:11] LABS: Basophils Percent Auto 0.7 % (0.2-1.2); Eosinophils Absolute Auto 0.1 K/mm3 (0-0.3); Eosinophils Percent Auto 3.4 % (0-4.4); Hematocrit 27.4 % (37.0-47.0); Hemoglobin 8.7 g/dL (12.0-15.0); Immature Granulocyte Absolute 0.02 K/mm3 (0.00-0.031); Immature Granulocyte Percent A 1.4 % (0-0.5); Lymphocytes Absolute Auto 0.37 K/mm3 (0.9-3.2); Mean Corpuscular HGB Conc 31.8 g/dl (32-36); Mean Corpuscular Hemoglobin 30.5 pg (26-34); Mean Corpuscular Volume 96.1 fl (80-100); Mean Platelet Volume 9.4 fl (7.4-10.4); Monocytes Absolute Auto 0.3 K/mm3 (0.1-0.6); Monocytes Percent Auto 19.6 % (2.6-8.5); Neutrophils Absolute Auto 0.7 K/mm3 (1.3-6.7); Neutrophils Percent Auto 49.9 % (45.5-73.1); Platelet Count Result 171 k/mm3 (150-375); Red Blood Count 2.85 M/mm3 (4.2-5.4); Red Cell Distribution Width 13.6 % (11.5-14.5)
[2023-04-04 05:24] LABS: Alanine Aminotransferase 119 U/L (6-35); Albumin Level 3.5 g/dL (3.5-5.1); Alkaline Phosphatase 84 U/L (38-126); Anion Gap 8 mmol/L (8-16); Aspartate Amino Transferase 50 U/L (14-36); Bilirubin,Total 0.6 mg/dL (0.2-1.3); Blood Urea Nitrogen 32 mg/dL (7-17); Calcium 8.7 mg/dL (8.4-10.2); Carbon Dioxide 29 mmol/L (22-30); Chloride 111 mmol/L (98-107); Estimated CRCL calculation 42 ml/min; Estimated Glomerular Filt Rate 42; Glucose 123 mg/dL (65-110); Magnesium 2.2 mg/dL (1.6-2.3); Potassium 3.3 mmol/L (3.4-5.0); Sodium 148 mmol/L (137-145)
[2023-04-04 05:47] LABS: White Blood Count 1.5 K/mm3 (4.5-10.0)
[2023-04-04 08:00] VITALS: BP 127/70; PULSE 102; RESP 16; TEMP 36.9; O2SAT 98
[2023-04-04] MEDS: LANSOPRAZOLE ORAL SUSP 30 MG/10 ML ORAL.SUSP FEED TUBE (08:31)
[2023-04-04] MEDS: POTASSIUM CHLORIDE 20 MEQ PACKET (FOR LIQUID) 40 MEQ PO (08:31)
[2023-04-04 12:00] VITALS: BP 127/72; PULSE 108; RESP 16; TEMP 36.8; O2SAT 99
--- NOTE | 2023-04-04 14:09 | PM.IMPN ---
Progress Note: A&P Assessment and Plan (1) MORALES (acute kidney injury): Code(s): N17.9 - Acute kidney failure, unspecified Status: Acute Assessment and Plan: Patient found with a BUN and creatinine of 64/2.2. Patient states that her chemotherapy does have side effect of causing kidney injury. IV fluid hydration. Improving with treatment. UA without infection Continue to monitor. (2) Acute hypernatremia: Code(s): E87.0 - Hyperosmolality and hypernatremia Status: Acute Assessment and Plan: On presentation patient was found to have a sodium of 162. Originally given normal saline in the ED that was in transition to D 5 W. Lower sodium no more than 10 mEq Q 24 hours 100 mL per hour D5 discontinued on 04/04/2023 04/04/2023 sodium level 148. Continue to monitor (3) Leukopenia: Code(s): D72.819 - Decreased white blood cell count, unspecified Status: Acute Assessment and Plan: Resulted chemotherapy. ACN of 700 Continue to monitor. 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 Continues to have pain with swallowing and at the site of radiation. Analgesics as needed. (5) Malnutrition: Code(s): E46 - Unspecified protein-calorie malnutrition Status: Acute Assessment and Plan: She is not tolerating her bolus feedings very well and dietary recommending continuous feeds through the night. Patient changed to continuous tube feedings overnight. Discontinue bolus feedings. Meets qualifications for severe malnutrition 04/04/2023 tolerating continuous tube feeds well. Subjective Date/time seen: 04/04/23 14:09 Interval history: Patient tolerated overnight tube feeds well. Plan to discontinue D5 today and increase patient's free fluid. She states the nausea is much improved and she just feels overly tired which is to be expected post cancer treatment. States it her salivary glands are expected to recover in approximately 4 weeks. She is urinating and having bowel movements. Denies chest pain shortness a breath. Continue to monitor sodium levels. Exam Narrative: GENERAL: Comfortable, no acute distress HENMT: moist mucous membranes EYES: EOM intact b/l NECK: no lymphadenopathy RESPIRATORY: clear to auscultation CARDIO: RRR GI: soft, nontender, bowel sounds present SKIN: no rashes EXTREMITIES: no edema, redness or tenderness Objective Data Vital Signs Vital Signs: Vital Signs - 24 hr 04/03/23 14:29 04/03/23 16:00 04/03/23 20:00 Temperature 97.8 F 98.1 F Pulse Rate 91 99 Respiratory Rate 18 16 Blood Pressure 134/65 139/79 Pulse Oximetry 96 100 Oxygen Delivery Room Air 04/03/23 22:41 04/04/23 01:08 04/04/23 04:00 Temperature 98.4 F 97.6 F 97.8 F Pulse Rate 100 103 H 100 Respiratory Rate 16 16 16 Blood Pressure 126/74 136/74 141/78 H Pulse Oximetry 100 98 99 Oxygen Delivery 04/04/23 08:00 Temperature 98.5 F Pulse Rate 102 H Respiratory Rate 16 Blood Pressure 127/70 Pulse Oximetry 98 Oxygen Delivery Intake/Output Intake/Output: Intake & Output 04/01/23 04/02/23 04/03/23 04/04/23 23:59 23:59 23:59 23:59 Intake Total 1300 3170 1000 Output Total 1900 900 Balance 1300 1270 100 Meds/Results Medications: Active Medications Generic Name Dose Route Start Last Admin Trade Name Freq PRN Reason Stop Dose Admin Acetaminophen 650 mg 04/02/23 20:13 Acetaminophen 325 Mg Tablet PO Q4H PRN Mild Pain (1-3) or Fever Hydrocodone Bitart/Acetaminophen 1 tab 04/03/23 14:16 Hydrocodone/Acetaminophen (*Crx) 5-325 Mg Tablet PO Q6H PRN Pain Rated 4-6 Dextrose 1,000 mls @ 100 mls/hr
[2023-04-04 14:55] LABS: Anion Gap 7 mmol/L (8-16); Blood Urea Nitrogen 29 mg/dL (7-17); Calcium 8.4 mg/dL (8.4-10.2); Carbon Dioxide 30 mmol/L (22-30); Chloride 109 mmol/L (98-107); Estimated CRCL calculation 49 ml/min; Estimated Glomerular Filt Rate 51; Glucose 128 mg/dL (65-110); Potassium 3.5 mmol/L (3.4-5.0); Sodium 146 mmol/L (137-145)
[2023-04-04 20:10] VITALS: BP 122/75; PULSE 102; RESP 18; TEMP 36.7; O2SAT 99
[2023-04-05] MEDS: MAGNES & ALUM HYD/SIMETH/DIPHENHYD/LIDOCAINE 119 ML MOUTHWASH BY MOUTH ×6 (01:15→23:41)
[2023-04-05 05:59] LABS: Hematocrit 25.2 % (37.0-47.0); Hemoglobin 8.1 g/dL (12.0-15.0); Mean Corpuscular HGB Conc 32.1 g/dl (32-36); Mean Corpuscular Hemoglobin 29.8 pg (26-34); Mean Corpuscular Volume 92.6 fl (80-100); Mean Platelet Volume 9.3 fl (7.4-10.4); Platelet Count Result 143 k/mm3 (150-375); Red Blood Count 2.72 M/mm3 (4.2-5.4); Red Cell Distribution Width 13.3 % (11.5-14.5); White Blood Count 2.3 K/mm3 (4.5-10.0)
[2023-04-05 06:00] VITALS: BP 113/65; PULSE 111; RESP 20; TEMP 36.5; O2SAT 99
[2023-04-05 06:16] LABS: Alanine Aminotransferase 97 U/L (6-35); Albumin Level 3.2 g/dL (3.5-5.1); Alkaline Phosphatase 84 U/L (38-126); Anion Gap 10 mmol/L (8-16); Aspartate Amino Transferase 42 U/L (14-36); Bilirubin,Total 0.4 mg/dL (0.2-1.3); Blood Urea Nitrogen 24 mg/dL (7-17); Calcium 8.5 mg/dL (8.4-10.2); Carbon Dioxide 28 mmol/L (22-30); Chloride 109 mmol/L (98-107); Estimated CRCL calculation 45 ml/min; Estimated Glomerular Filt Rate 46; Glucose 130 mg/dL (65-110); Potassium 3.6 mmol/L (3.4-5.0); Sodium 147 mmol/L (137-145)
[2023-04-05] MEDS: LANSOPRAZOLE ORAL SUSP 30 MG/10 ML ORAL.SUSP FEED TUBE (06:53)
--- NOTE | 2023-04-05 09:15 | PC.NURSE ---
100 cc flush given through G-tube
--- NOTE | 2023-04-05 11:32 | PM.IMPN ---
Progress Note: A&P Assessment and Plan (1) MORALES (acute kidney injury): Code(s): N17.9 - Acute kidney failure, unspecified Status: Acute Assessment and Plan: Patient found with a BUN and creatinine of 64/2.2. Patient states that her chemotherapy does have side effect of causing kidney injury. IV fluids discontinued on 04/04/2023. Continue with overnight feeding and increase free water with tube feeds. BUN and creatinine of 24/1.2 and sodium of 147. UA without infection Continue to monitor. May consider restarting fluids if kidney function and sodium do not continue to improve. (2) Acute hypernatremia: Code(s): E87.0 - Hyperosmolality and hypernatremia Status: Acute Assessment and Plan: On presentation patient was found to have a sodium of 162. Originally given normal saline in the ED that was in transition to D 5 W. Lower sodium no more than 10 mEq Q 24 hours 100 mL per hour D5 discontinued on 04/04/2023 04/05/2023 sodium level 147. Continue to monitor (3) Leukopenia: Code(s): D72.819 - Decreased white blood cell count, unspecified Status: Acute Assessment and Plan: Resulted chemotherapy. Continue to monitor. 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 Continues to have pain with swallowing and at the site of radiation. Analgesics as needed. (5) Malnutrition: Code(s): E46 - Unspecified protein-calorie malnutrition Status: Acute Assessment and Plan: She is not tolerating her bolus feedings very well and dietary recommending continuous feeds through the night. Patient changed to continuous tube feedings overnight. Discontinue bolus feedings. Meets qualifications for severe malnutrition 04/05/2023 had episode of vomiting overnight due to fluid bolus. Plan to discuss with dietary tomorrow due to them not being present on Sundays. (6) Anemia: Code(s): D64.9 - Anemia, unspecified Status: Acute Assessment and Plan: Patient's anemia likely due to chemotherapy treatments. Order anemia workup. Patient continues to feel fatigued which could be related to her anemia. Subjective Date/time seen: 04/05/23 11:32 Interval history: Patient continues to feel fatigued and very sleepy. Discussed with her that her body is trying to heal from the numerous rounds of chemo and radiation therapy as well as her pancytopenia count and anemia. Electrolytes are still in the process of being balanced out. She did have episode of vomiting last night that she attributes to the fluid bolus as well as her increased secretions. She has been using suction to help with secretions. Plan to talk with dietary once a return on Thursday about patient's vomiting and increasing free water. Exam Narrative: GENERAL: Comfortable, no acute distress HENMT: moist mucous membranes EYES: EOM intact b/l NECK: no lymphadenopathy RESPIRATORY: clear to auscultation CARDIO: RRR GI: soft, nontender, bowel sounds present SKIN: no rashes EXTREMITIES: no edema, redness or tenderness Objective Data Vital Signs Vital Signs: Vital Signs - 24 hr 04/04/23 12:00 04/04/23 19:50 04/04/23 20:10 Temperature 98.2 F 98.1 F Pulse Rate 108 H 102 H Respiratory Rate 16 18 Blood Pressure 127/72 122/75 Pulse Oximetry 99 99 Oxygen Delivery Room Air 04/05/23 06:00 04/05/23 09:15 Temperature 97.7 F Pulse Rate 111 H Respiratory Rate 20 Blood Pressure 113/65 Pulse Oximetry 99 Oxygen Delivery Room Air Intake/Output Intake/Output: Intake & Output 04/02/23 04/03/23 04/04/23 04/05/23 23:59 23:59 23:59 23:59 Intake Total 1300 3170 1000 Output Total 1900
[2023-04-05 12:27] LABS: Anion Gap 7 mmol/L (8-16); Blood Urea Nitrogen 25 mg/dL (7-17); Calcium 8.4 mg/dL (8.4-10.2); Carbon Dioxide 31 mmol/L (22-30); Chloride 109 mmol/L (98-107); Estimated CRCL calculation 49 ml/min; Estimated Glomerular Filt Rate 51; Glucose 150 mg/dL (65-110); Potassium 3.5 mmol/L (3.4-5.0); Sodium 147 mmol/L (137-145)
[2023-04-05 13:22] VITALS: PULSE 108
[2023-04-05] MEDS: DEXTROSE 5% 1,000 ML 1,000 ML 100 ML IV CONT ×2 (14:11→23:40)
--- NOTE | 2023-04-05 14:15 | PC.NURSE ---
200 cc flush given through G-tube
[2023-04-05 14:57] VITALS: BP 141/72; PULSE 99; RESP 16; TEMP 37.4; O2SAT 99
[2023-04-05 16:00] VITALS: PULSE 102
--- NOTE | 2023-04-05 16:40 | PC.NURSE ---
140 cc water flush given to patient
--- NOTE | 2023-04-05 18:52 | PC.NURSE ---
100 cc water flush administered through G-tube. Patient had a total of 560 cc free water flush. Goal per chief librarian music department is 547. Patient requested to have all free water flushes manually entered into pump during the day, none at night.
[2023-04-05 20:00] VITALS: PULSE 109
[2023-04-05 20:14] VITALS: BP 108/69; PULSE 105; RESP 16; TEMP 36.4; O2SAT 98
[2023-04-06] VITALS: PULSE 99
[2023-04-06 04:00] VITALS: PULSE 102
[2023-04-06] MEDS: MAGNES & ALUM HYD/SIMETH/DIPHENHYD/LIDOCAINE 119 ML MOUTHWASH BY MOUTH ×3 (05:31→13:08)
[2023-04-06] MEDS: LANSOPRAZOLE ORAL SUSP 30 MG/10 ML ORAL.SUSP FEED TUBE (05:31)
[2023-04-06 05:44] VITALS: BP 126/75; PULSE 114; RESP 16; TEMP 36.6; O2SAT 97
[2023-04-06 05:50] LABS: Hematocrit 24.3 % (37.0-47.0); Hemoglobin 7.8 g/dL (12.0-15.0); Mean Corpuscular HGB Conc 32.1 g/dl (32-36); Mean Corpuscular Hemoglobin 30.1 pg (26-34); Mean Corpuscular Volume 93.8 fl (80-100); Mean Platelet Volume 8.9 fl (7.4-10.4); Platelet Count Result 135 k/mm3 (150-375); Red Blood Count 2.59 M/mm3 (4.2-5.4); Red Cell Distribution Width 13.5 % (11.5-14.5); White Blood Count 3.5 K/mm3 (4.5-10.0)
[2023-04-06 06:07] LABS: Alanine Aminotransferase 76 U/L (6-35); Alkaline Phosphatase 83 U/L (38-126); Anion Gap 7 mmol/L (8-16); Aspartate Amino Transferase 29 U/L (14-36); Bilirubin,Total 0.5 mg/dL (0.2-1.3); Blood Urea Nitrogen 20 mg/dL (7-17); Calcium 8.2 mg/dL (8.4-10.2); Carbon Dioxide 31 mmol/L (22-30); Chloride 104 mmol/L (98-107); Estimated CRCL calculation 53 ml/min; Estimated Glomerular Filt Rate 57; Glucose 139 mg/dL (65-110); Potassium 3.5 mmol/L (3.4-5.0); Sodium 142 mmol/L (137-145)
[2023-04-06 07:33] LABS: Band Neutrophils Percent 30 % (0-6); Eosinophils Absolute Manual 0.07 K/mm3 (0.02-0.5); Eosinophils Percent Manual 2 % (0-4); Lymphocytes Absolute Manual 0.28 K/mm3 (1.1-4.5); Metamyelocytes Percent 2 %; Monocytes Absolute Manual 0.17 K/mm3 (0.1-0.90); Monocytes Percent Manual 5 % (3-9); Neutrophils Percent Manual 53 % (46-73); Total Cells Counted 100
[2023-04-06 07:34] LABS: Anisocytosis 1+ (NORMAL); Hypochromasia 1+ (NORMAL); Schistocytes None Seen (NORMAL)
[2023-04-06 07:37] LABS: Iron 28 ug/dL (37-170)
[2023-04-06 07:47] LABS: Percent Iron Saturation 15 % (20-50); Transferrin 121 mg/dL (206-381)
[2023-04-06 08:45] LABS: Folic Acid 7.8 ng/mL (2.76->20)
--- NOTE | 2023-04-06 12:31 | PCPTNOTE ---
Attempted PT evaluation, pt refused stating she knows she will be weak, but states she has plenty of help at home and continues to be independent in hospital. RN aware. Will contact hospitalist.
[2023-04-06 13:06] VITALS: PULSE 105
[2023-04-06] MEDS: METOPROLOL TARTRATE INJ 5 MG/5 ML VIAL IV PUSH (13:06)
--- NOTE | 2023-04-06 13:29 | PCDIET ---
Nutrition/Tube feeding: Notified by Carla HORTON that pt is not tolerating the overnight fluid bolus of 200 ml. Recommend decreasing fluid flushes to 65 ml q 2 hours to improve tolerance. Discussion with patient who is able to manage flushes with pump. Discussed that total goal volume of tube feeding is 1200 ml per day. Pt would like to use the pump for feedings instead of doing boluses to improve GI tolerance. Recommend home rate of 67 ml/h over 18 hours, with flushes 65 ml q 2 hours over 24 hours. Totals: 780 ml total flushes. 1809 kcal, 76.5 g protein, 912 ml free water from formula. TOTAL FREE FLUID: (Flushes + free water from formula)= 1700 ml/day.
--- NOTE | 2023-04-06 15:25 | P.PNIM_ITS ---
Progress Note: A&P Assessment and Plan (1) MORALES (acute kidney injury): Code(s): N17.9 - Acute kidney failure, unspecified Status: Acute Assessment and Plan: Patient found with a BUN and creatinine of 64/2.2. Patient states that her chemotherapy does have side effect of causing kidney injury. * IV fluids discontinued on 04/04/2023. Continue with overnight feeding and increase free water with tube feeds. * BUN and creatinine of 20/1 and sodium of 142. * UA without infection * Continue to monitor. * May consider restarting fluids if kidney function and sodium do not continue to improve. (2) Acute hypernatremia: Code(s): E87.0 - Hyperosmolality and hypernatremia Status: Acute Assessment and Plan: On presentation patient was found to have a sodium of 162. * Originally given normal saline in the ED that was in transition to D 5 W. * Lower sodium no more than 10 mEq Q 24 hours * 100 mL per hour D5 discontinued on 04/04/2023 * 04/05/2023 sodium level 142. * Continue to monitor (3) Leukopenia: Code(s): D72.819 - Decreased white blood cell count, unspecified Status: Acute Assessment and Plan: Resulted chemotherapy. * Continue to monitor. * If less than 500 will order reversed isolation precautions (4) Oropharyngeal cancer: Code(s): C10.9 - Malignant neoplasm of oropharynx, unspecified Status: Acute Assessment and Plan: Patient just recently finished chemotherapy and radiation treatments. * Continues to have pain with swallowing and at the site of radiation. * Analgesics as needed. (5) Malnutrition: Code(s): E46 - Unspecified protein-calorie malnutrition Status: Acute Assessment and Plan: She is not tolerating her bolus feedings very well and dietary recommending continuous feeds through the night. * Patient changed to continuous tube feedings overnight. * Discontinue bolus feedings. * Meets qualifications for severe malnutrition * 04/05/2023 had episode of vomiting overnight due to fluid bolus. * Discussed with dietary and will change to more frequent less volume boluses. (6) Anemia: Code(s): D64.9 - Anemia, unspecified Status: Acute Assessment and Plan: Patient's anemia likely due to chemotherapy treatments. * Order anemia workup. * Patient continues to feel fatigued which could be related to her anemia. Subjective Date/time seen: 04/06/23 15:25 Exam Narrative: GENERAL: Comfortable, no acute distress HENMT: moist mucous membranes EYES: EOM intact b/l NECK: no lymphadenopathy RESPIRATORY: clear to auscultation CARDIO: RRR GI: soft, nontender, bowel sounds present SKIN: no rashes EXTREMITIES: no edema, redness or tenderness Objective Data Vital Signs Vital Signs: Vital Signs - 24 hr 04/05/23 16:00 04/05/23 20:14 04/05/23 20:00 Temperature 97.6 F Pulse Rate 102 H 105 H 109 H Respiratory Rate 16 Blood Pressure 108/69 Pulse Oximetry 98 04/06/23 00:00 04/06/23 04:00 04/06/23 05:44 Temperature 97.9 F Pulse Rate 99 102 H 114 H Respiratory Rate 16 Blood Pressure 126/75 Pulse Oximetry 97 04/06/23 13:06 Temperature
--- NOTE | 2023-04-06 15:25 | PM.IMPN ---
Progress Note: A&P Assessment and Plan (1) MORALES (acute kidney injury): Code(s): N17.9 - Acute kidney failure, unspecified Status: Acute Assessment and Plan: Patient found with a BUN and creatinine of 64/2.2. Patient states that her chemotherapy does have side effect of causing kidney injury. IV fluids discontinued on 04/04/2023. Continue with overnight feeding and increase free water with tube feeds. BUN and creatinine of 20/1 and sodium of 142. UA without infection Continue to monitor. May consider restarting fluids if kidney function and sodium do not continue to improve. (2) Acute hypernatremia: Code(s): E87.0 - Hyperosmolality and hypernatremia Status: Acute Assessment and Plan: On presentation patient was found to have a sodium of 162. Originally given normal saline in the ED that was in transition to D 5 W. Lower sodium no more than 10 mEq Q 24 hours 100 mL per hour D5 discontinued on 04/04/2023 04/05/2023 sodium level 142. Continue to monitor (3) Leukopenia: Code(s): D72.819 - Decreased white blood cell count, unspecified Status: Acute Assessment and Plan: Resulted chemotherapy. Continue to monitor. 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 Continues to have pain with swallowing and at the site of radiation. Analgesics as needed. (5) Malnutrition: Code(s): E46 - Unspecified protein-calorie malnutrition Status: Acute Assessment and Plan: She is not tolerating her bolus feedings very well and dietary recommending continuous feeds through the night. Patient changed to continuous tube feedings overnight. Discontinue bolus feedings. Meets qualifications for severe malnutrition 04/05/2023 had episode of vomiting overnight due to fluid bolus. Discussed with dietary and will change to more frequent less volume boluses. (6) Anemia: Code(s): D64.9 - Anemia, unspecified Status: Acute Assessment and Plan: Patient's anemia likely due to chemotherapy treatments. Order anemia workup. Patient continues to feel fatigued which could be related to her anemia. Subjective Date/time seen: 04/06/23 15:25 Exam Narrative: GENERAL: Comfortable, no acute distress HENMT: moist mucous membranes EYES: EOM intact b/l NECK: no lymphadenopathy RESPIRATORY: clear to auscultation CARDIO: RRR GI: soft, nontender, bowel sounds present SKIN: no rashes EXTREMITIES: no edema, redness or tenderness Objective Data Vital Signs Vital Signs: Vital Signs - 24 hr 04/05/23 16:00 04/05/23 20:14 04/05/23 20:00 Temperature 97.6 F Pulse Rate 102 H 105 H 109 H Respiratory Rate 16 Blood Pressure 108/69 Pulse Oximetry 98 04/06/23 00:00 04/06/23 04:00 04/06/23 05:44 Temperature 97.9 F Pulse Rate 99 102 H 114 H Respiratory Rate 16 Blood Pressure 126/75 Pulse Oximetry 97 04/06/23 13:06 Temperature Pulse Rate 105 H Respiratory Rate Blood Pressure Pulse Oximetry Intake/Output Intake/Output: Intake & Output 04/03/23 04/04/23 04/05/23 04/06/23 23:59 23:59 23:59 23:59 Intake Total 3170 1000 2090 1000 Output Total 1900 1200 Balance 1270 -200 2090 1000 Meds/Results Medications: Active Medications Generic Name Dose Route Start Last Admin Trade Name Freq PRN Reason Stop Dose Admin Acetaminophen 650 mg 04/02/23 20:13 Acetaminophen 325 Mg Tablet PO Q4H PRN Mild Pain (1-3) or Fever Hydrocodone Bitart/Acetaminophen 1 tab 04/03/23 14:16 Hydrocodone/Acetaminophen (*Crx) 5-325 Mg Tablet PO Q6H PRN Pain Rated 4-6 Lansoprazole 30 mg 04/03/23 08:00 04/06/23 0
--- NOTE | 2023-04-06 15:38 | PM.DS ---
DS: Admitting Diagnosis Discharge Date 04/06/23 Admitting Diagnosis Hypernatremia, MORALES DS: Discharge Diagnosis Discharge Diagnosis (1) MORALES (acute kidney injury): Code(s): N17.9 - Acute kidney failure, unspecified Status: Acute (2) Acute hypernatremia: Code(s): E87.0 - Hyperosmolality and hypernatremia Status: Acute (3) Leukopenia: Code(s): D72.819 - Decreased white blood cell count, unspecified Status: Acute (4) Oropharyngeal cancer: Code(s): C10.9 - Malignant neoplasm of oropharynx, unspecified Status: Acute (5) Malnutrition: Code(s): E46 - Unspecified protein-calorie malnutrition Status: Acute (6) Anemia: Code(s): D64.9 - Anemia, unspecified Status: Acute DS: Summary Hospital Course Hospital Course: Patient is 57-year-old female with a history of oropharyngeal cancer the presented to the ED on 04/02/2023 due to abnormal lab work. She was found to be in acute renal failure as well as severely hypernatremic. She had recently finished her last round of chemo and radiation. She has been on tube feedings and had been giving herself 500 mL of water daily however she had been vomiting for several days prior to ED presentation. She was found to have a sodium of 162 and a BUN and creatinine of 64/2.2. She was given a bolus of normal saline but then transition to D5. She received several days of D5 until her labs came back within range. On the day of discharge her sodium was 142 and BUN and creatinine of 20/1. Dietary was consulted due to inadequate fluid hydration. RD recommended continuous feeds throughout the night with bolus feeds through the day. Patient did not do well with the fluid flushes at night so the dietitian recommended more frequent intervals of flushing with less fluid. Patient seemed to do well with this. She also has increased secretions and was having nausea due to the amount of secretions. suctioning the secretions was helping with this and it was advised that she get 1 from home. Unfortunately insurance does not cover this and it would be an [id number] expense. This was conveyed to the patient and she understood this and is going to look into other options. Her labs and vital signs are stable and she is medically clear for discharge at this time. Time Spent with Patient Time attestation: Total time spent providing and/or coordinating discharge services: Exam Narrative: GENERAL: Comfortable, no acute distress HENMT: moist mucous membranes EYES: EOM intact b/l NECK: no lymphadenopathy RESPIRATORY: clear to auscultation CARDIO: RRR GI: soft, nontender, bowel sounds present SKIN: no rashes EXTREMITIES: no edema, redness or tenderness DS: Data Data Completed and Pending Labs on day of discharge: Labs from last 24 hours 04/06/23 04/06/23 05:32 05:29 WBC 3.5 L RBC 2.59 L Hgb 7.8 L Hct 24.3 L MCV 93.8 MCH 30.1 MCHC 32.1 RDW 13.5 Plt Count 135 L MPV 8.9 Immature Gran % (Auto) Not Reportable Neut % (Auto) Not Reportable Lymph % (Auto) Not Reportable [place] % (Auto) Not Reportable Eos % (Auto) Not Reportable Baso % (Auto) Not Reportable Lymph # (Auto) Not Reportable [place] # (Auto) Not Reportable Eos # (Auto) Not Reportable Baso # (Auto) Not Reportable Abs Immat Gran (auto) Not Reportable Absolute Neuts (auto) Not Reportable Absolute Nucleated RBC Not Reportable Total Counted 100 Neutrophils % (Manual) 53 Band Neutrophils % 30 H Lymphocytes % (Manual) 8.0 L Monocytes % (Manual) 5 Eosinophils % (Manual) 2 Metamyelocytes % 2 Nucleated RBC % Not Reportable Abs Neuts (Manual) 2.90 Abs Lymphs (Manual) 0.28 L Abs Monocytes (Manual) 0.17 Absolute Eos (Manual) 0.07 Platelet Estimate Slightly decreased Hypochromasia 1+ Anisocytosis 1+ Schistocytes None seen Sodium 142 Potassium 3.5 Chloride 104 Carbon Dioxide 31 H Anion
== END 2023-04-06 16:47 | disposition home or self-care (01) | DRG 640 ==
LOC: ANHED 18:36 → ANH2MED 04-03 11:15
PROVIDERS: Student in an Organized Health Care Education/Training Program; Admitting Provider Internal Medicine; Emergency Provider Emergency Medicine; PCP Physician Assistant Medical; Visit Provider Internal Medicine Critical Care Medicine
DX: E87.0 Hyperosmolality and hypernatremia (principal); E43 Unspecified severe protein-calorie malnutrition; N17.9 Acute kidney failure, unspecified; C10.9 Malignant neoplasm of oropharynx, unspecified; D64.81 Anemia due to antineoplastic chemotherapy; E03.9 Hypothyroidism, unspecified; K21.9 Gastro-esophageal reflux disease without esophagitis; Z90.49 Acquired absence of other specified parts of digestive tract; Z96.641 Presence of right artificial hip joint; Z87.891 Personal history of nicotine dependence; Z92.3 Personal history of irradiation; Z68.26 Body mass index [BMI] 26.0-26.9, adult; Z92.21 Personal history of antineoplastic chemotherapy; Z28.21 Immunization not carried out because of patient refusal; Z93.1 Gastrostomy status
CPT/HCPCS: 36415; 71045; 80048; 80053; 81003; 82607; 82728; 82746; 83540; 83550; 83735; 84443; 84466; 85025; 85027; 96361; 99285; A9270; J7030; J7070

== ENCOUNTER 2023-05-26 09:56 | Outpatient (CLI) | payer OTHER, SELFPAY ==
--- NOTE | ~2023-05-26 | CT_ITS ---
CT scan of the Neck Technique: 2.5 mm axial scans were obtained through the neck after intravenous administration of 75 c c Omnipaque 350. Coronal and sagittal reconstructions of the neck were obtained. Dose reduction techn ique was used on this scan by utilizing automated exposure control and iterative reconstruction techn ique. The dose-length product (DLP) was 514.63 mGy-cm. Clinical History: Oropharyngeal cancer restaging COMPARISON: 12/19/2022 Findings: Previously noted left-sided neck mass/tonsillar mass appears to be essentially completely resolved, a lthough there is some motion artifact which confounds evaluation. No lymphadenopathy evident. Promine nce of the Severe unremarkable. Parapharyngeal fat appears preserved bilaterally. The thyroid gland appears normal. Images of the lung apices reveal no abnormalities. Impression: Essentially complete radiologic response to therapy. Previously noted mass lesion is completely resol asael, though there is some motion artifact which mildly compresses evaluation. Pre and postcontrast MR could be considered to further assess for small residual disease. Reviewed, dictated and finalized at location . [facility] Impression: Essentially complete radiologic response to therapy. Previously noted mass lesi on is completely resolved, though there is some motion artifact which mildly co mpresses evaluation. Pre and postcontrast MR could be considered to further ass ess for small residual disease.
== END 2023-05-26 09:57 | disposition home or self-care (01) ==
LOC: ANHIMG 09:58
PROVIDERS: PCP Physician Assistant Medical; Visit Provider Internal Medicine Hematology & Oncology
DX: C10.9 Malignant neoplasm of oropharynx, unspecified (principal)
CPT/HCPCS: 70491; Q9967

== ENCOUNTER 2023-06-03 13:48 | Outpatient (RCR) | payer OTHER, SELFPAY ==
--- NOTE | 2023-06-03 15:26 | STOPEVAL1 ---
Assessment and note entered by Jolly Zabala DIAGRAMMER AND SEAMER Evaluation Information Assessment Status Evaluation Reported Pain Level Pain Score 0: Self Report Assessment ST Clinical Summary BEDSIDE SWALLOW EVALUATION This patient was seen for a Bedside Swallow Evaluation at the request of her physician. Patient is well known to this therapist, having worked together at [facility] and having had a previous Bedside Swallow Evaluation in March 16. Patient reports that she was diagnosed with cancer in the throat last fall and underwent radiation to both sides of the throat with lymph node involvement on both sides of the neck. She reports her tongue had become swollen, had sores on the roof of her mouth, and that she was unable to swallow because her throat was burned as a result of the radiation treatment. Patient had stomach tube placed in February; she reported she noticed she was beginning to take liquids and began to consume soft foods around and so she wanted the stomach tube removed by mid- April. Patient currently reports she feels she is consuming liquids well, including smoothies with fresh fruit and vegetables however when trying to eat dry foods including breads and pastas, she has no saliva and the food becomes pasty and when attempting to swallow, she reports she gags and will expectorate or vomit. Patient reports she can handle soups with small pieces such as potato soup, shrimp bisque, butternut squash soup and dry foods such as cereal with a liquid wash. Patient continues to avoid foods that are acidic or spicy such as red sauces/tomato sauces, [place] food, barbecue sauce and carbonated drinks. Today the patient was presented with pudding, applesauce, and fruit cocktail. When asked to consume a jose cracker, patient stated it would not work for her and she would refuse it. Patient then refused the pudding, stating that she knows it would gag her. She took one bite of applesauce, and swallowed but on the second bite, she gagged and expectorated the second bite and refused additional applesauce. Patient consumed the whole cup of fruit cocktail in syrup, indicating that she
--- NOTE | 2023-06-03 15:27 | OPREHPOC ---
Outpatient Therapy Plan of Care This is a Multidisciplinary Plan of Care that may contain components documented by all disciplines (PT, OT, and ST.) ST Problem 1 ST Problem #[address] Goal 1 Goal 1. Patient will verbalize understanding of why various foods trigger gagging and how to avoid this reaction in the future. Target Visit [address] Problem #[address] Goal 1 Goal 1. Patient will complete tasks to de-sensitize the tongue to various textures, tastes, and consistencies in order to increase the ability to tolerate a larger variety of solid foods without eliciting the gag reflex. Target Visit 8 ST Goal 2 Goal 1. Patient will consume a variety of consistencies with and without moisture with no gagging or other difficulty swallowing noted 90% of the time. Target Visit 8
--- NOTE | 2023-06-05 12:04 | PCSTNOTE ---
Jenni, clerical, reported patient cancelled the next two scheduled sessions due to concerns with insurance and would be in contact about continuing in the future.
--- NOTE | 2023-06-11 15:58 | STOPDC ---
Assessment and note entered by Jolly Zaabla EDGE BRUSHER Evaluation Information Assessment Status Discharge - Pt Not Presen Assessment ST Clinical Summary DISCHARGE SUMMARY Patient was seen for an evaluation of her swallowing on 06/03 and it was determined that she may benefit from direct Speech Therapy to address de-sensitizing her tongue to more solid foods as well as to determine best wasy to introduce more solid consistencies while reducing gagging/choking. Patient initially agreed to return for Speech Therapy but therapist was notified that patient and physician have decided to approach the issue through other means and therefore patient will not be returning to direct Speech Therapy. Patient was seen for evaluation only and is being discharged without achieving the specific goals that were devised as a result of the evaluation. Thank you for this referral. Plan of Care ST Services Indicated No
== END 2023-06-11 16:08 | disposition home or self-care (01) ==
LOC: ANHST 13:48
PROVIDERS: PCP Physician Assistant Medical; Visit Provider Internal Medicine Hematology & Oncology
DX: C10.9 Malignant neoplasm of oropharynx, unspecified (principal)
CPT/HCPCS: 92610

== ENCOUNTER 2023-06-24 15:02 | Outpatient (CLI) | payer OTHER, SELFPAY ==
[2023-06-24 15:18] LABS: Basophils Percent Auto 0.5 % (0.2-1.2); Eosinophils Absolute Auto 0.1 K/mm3 (0-0.3); Eosinophils Percent Auto 1.3 % (0-4.4); Hematocrit 34.5 % (37.0-47.0); Hemoglobin 11.2 g/dL (12.0-15.0); Immature Granulocyte Absolute 0.02 K/mm3 (0.00-0.031); Immature Granulocyte Percent A 0.4 % (0-0.5); Lymphocytes Absolute Auto 0.75 K/mm3 (0.9-3.2); Lymphocytes Percent Auto 13.5 % (18.3-44.2); Mean Corpuscular HGB Conc 32.5 g/dl (32-36); Mean Corpuscular Hemoglobin 31.1 pg (26-34); Mean Corpuscular Volume 95.8 fl (80-100); Mean Platelet Volume 8.8 fl (7.4-10.4); Monocytes Absolute Auto 0.4 K/mm3 (0.1-0.6); Monocytes Percent Auto 7.7 % (2.6-8.5); Neutrophils Absolute Auto 4.3 K/mm3 (1.3-6.7); Neutrophils Percent Auto 76.6 % (45.5-73.1); Platelet Count Result 222 k/mm3 (150-375); Red Cell Distribution Width 11.7 % (11.5-14.5); White Blood Count 5.6 K/mm3 (4.5-10.0)
[2023-06-26 12:03] LABS: Anion Gap 9 mmol/L (8-16); Blood Urea Nitrogen 15 mg/dL (7-17); Calcium 9.5 mg/dL (8.4-10.2); Carbon Dioxide 27 mmol/L (22-30); Chloride 104 mmol/L (98-107); Estimated Glomerular Filt Rate 51; Glucose 96 mg/dL (65-110); Potassium 4.1 mmol/L (3.4-5.0); Sodium 140 mmol/L (137-145)
== END 2023-06-24 15:03 | disposition home or self-care (01) ==
LOC: ANHLAB 15:03
PROVIDERS: PCP Physician Assistant Medical; Visit Provider Internal Medicine Critical Care Medicine
DX: D72.819 Decreased white blood cell count, unspecified (principal); D64.9 Anemia, unspecified; N17.9 Acute kidney failure, unspecified
CPT/HCPCS: 36415; 80048; 85025

== ENCOUNTER 2023-09-24 14:17 | Outpatient (CLI) | payer OTHER, SELFPAY ==
--- NOTE | ~2023-09-24 | CT_ITS ---
EXAMINATION: CT soft tissue neck w con DATE: 09/24/2023 14:39 INDICATION: Oropharyngeal cancer. TECHNIQUE: Computed tomography (CT) of the neck was performed with 75 mL Omnipaque-350 intravenous co ntrast. Automated exposure control and iterative reconstruction technique were employed. The dose-day gth product was 393.34 mGy-cm. COMPARISON: Neck CT 05/26/2023, 12/19/22 FINDINGS: There is mucosal thickening in the pharynx and larynx, and there is fat stranding in the ne ck, consistent with changes of radiation therapy. There are no pathologically enlarged lymph nodes. T here is 0% stenosis of the proximal internal carotid arteries relative to normal distal artery lumen diameters. The mastoid air cells are normal. There is mild mucosal thickening in the paranasal sinuse s. There is severe cervical spondylosis. IMPRESSION: 1. No evidence of metastatic disease. Reviewed, dictated and finalized at location E.
== END 2023-09-24 14:18 | disposition home or self-care (01) ==
PROVIDERS: PCP Physician Assistant Medical; Visit Provider Internal Medicine Hematology & Oncology
DX: C10.9 Malignant neoplasm of oropharynx, unspecified (principal)
CPT/HCPCS: 70491; Q9967

== ENCOUNTER 2023-11-06 13:46 | Outpatient (CLI) | payer OTHER, SELFPAY ==
--- NOTE | ~2023-11-06 | MR_ITS ---
EXAMINATION: MR cervical spine wo/w con DATE: 11/06/2023 14:32 INDICATION: Myelopathy. TECHNIQUE: Magnetic resonance imaging (MRI) of the cervical spine was performed without and with Mult iHance intravenous contrast. COMPARISON: None FINDINGS: There is mild kyphosis of cervical spine. There is mild chronic anterior wedging of T1 vert ebral body. There is mildly decreased disc height at C3-C4 and C4-C5 and severely decreased disc heig ht at C5-C6 and C6-C7. The spinal cord signal intensity is normal. The following disc levels are spec ifically discussed: C2-C3: The disc does not extend beyond the endplate margin. There is no uncovertebral joint osteoarth ritis. There is ankylosis of left facet joint without hypertrophy. There is no neural foraminal steno sis. There is no central canal stenosis. C3-C4: The disc is bulging. There is mild bilateral uncovertebral joint osteoarthritis. There is akosua re bilateral facet joint osteoarthritis. There is mild bilateral neural foraminal stenosis. There is mild central canal stenosis. C4-C5: The disc is bulging. There is mild bilateral uncovertebral joint osteoarthritis. There is mode rate right and severe left facet joint osteoarthritis. There is mild bilateral neural foraminal steno sis. There is mild central canal stenosis. C5-C6: The disc is bulging. There is severe bilateral uncovertebral joint osteoarthritis. There is mo derate bilateral facet joint osteoarthritis. There is mild right and moderate left neural foraminal s tenosis. There is mild central canal stenosis. C6-C7: The disc is bulging. There is moderate right and mild left uncovertebral joint osteoarthritis. There is moderate bilateral facet joint osteoarthritis. There is mild right neural foraminal stenosi s. There is mild central canal stenosis. C7-T1: The disc does not extend beyond the endplate margin. There is no uncovertebral joint osteoarth ritis. There is moderate right and mild left facet joint osteoarthritis. There is mild right neural f oraminal stenosis. There is no central canal stenosis. IMPRESSION: 1. Severe cervical spondylosis. Reviewed, dictated and finalized at location E.
== END 2023-11-06 13:47 | disposition home or self-care (01) ==
LOC: ANHIMG 13:50
PROVIDERS: PCP Physician Assistant Medical; Visit Provider Internal Medicine Hematology & Oncology
DX: G95.9 Disease of spinal cord, unspecified (principal); M43.02 Spondylolysis, cervical region
CPT/HCPCS: 72156; A9577

== ENCOUNTER 2023-11-10 15:17 | Outpatient (CLI) | payer OTHER, SELFPAY ==
--- NOTE | ~2023-11-10 | MM_ITS ---
EXAMINATION: MM screening [facility] BI w tomas HISTORY: Screening TECHNIQUE: Craniocaudal and mediolateral oblique 3-D tomosynthesis images were obtained and synthetic 2-D images were generated. CAD analysis was submitted and interpreted. COMPARISON: 01/24/2022 BREAST PARENCHYMAL COMPOSITION: Dense: The breasts are heterogeneously dense, which may obscure small masses FINDINGS: There are developing punctate calcifications in the upper outer quadrant of the left breast adjacent to a tissue marker. No mammographic evidence for malignancy in the right breast. IMPRESSION: 1. Developing clustered nonspecific left breast calcifications, upper outer quadrant. 2. Magnification views are recommended. BI-RADS Category 0: Incomplete: Needs additional imaging evaluation. Reviewed, dictated and finalized at location B. IMPRESSION: 1. Developing clustered nonspecific left breast calcifications, upper outer taryn drant. 2. Magnification views are recommended. BI-RADS Category 0: Incomplete: Needs additional imaging evaluation.
== END 2023-11-10 15:18 | disposition home or self-care (01) ==
LOC: ANHIMG 15:19
PROVIDERS: PCP Physician Assistant Medical; Visit Provider Obstetrics & Gynecology
DX: Z12.31 Encounter for screening mammogram for malignant neoplasm of breast (principal); R92.8 Other abnormal and inconclusive findings on diagnostic imaging of breast
CPT/HCPCS: 77063; 77067

== ENCOUNTER 2023-12-18 13:29 | Outpatient (CLI) | payer OTHER, SELFPAY ==
--- NOTE | ~2023-12-18 | MM_ITS ---
EXAMINATION: MM diagnostic mammo unilat LT HISTORY: Follow-up left breast calcifications TECHNIQUE: Additional 3-D tomosynthesis images of the left breast were performed and synthetic 2-D im ages were generated. CAD analysis was submitted and interpreted. COMPARISON: Comparison to multiple prior studies sequentially, with oldest reviewed study dated 06/2021. BREAST PARENCHYMAL COMPOSITION: Not dense: There are scattered areas of fibroglandular density. FINDINGS: There are developing indeterminate calcifications in the upper outer quadrant of the left b reast adjacent to a tissue marker. These have developed since 01/24/2022. There are no suspicious mas ses or architectural distortion. IMPRESSION: 1. Cluster of indeterminate left breast calcifications in the upper outer quadrant of the left breast . 2. Stereotactic left breast biopsy recommended. BI-RADS category 4, suspicious findings. Reviewed, dictated and finalized at location B. IMPRESSION: 1. Cluster of indeterminate left breast calcifications in the upper outer quadr ant of the left breast. 2. Stereotactic left breast biopsy recommended. BI-RADS category 4, suspicious findings.
== END 2023-12-18 13:30 | disposition home or self-care (01) ==
LOC: ANHIMG 13:30
PROVIDERS: PCP Physician Assistant Medical; Visit Provider Obstetrics & Gynecology
DX: R92.8 Other abnormal and inconclusive findings on diagnostic imaging of breast (principal); R92.1 Mammographic calcification found on diagnostic imaging of breast
CPT/HCPCS: 77065

== ENCOUNTER 2024-02-16 07:50 | Outpatient (CLI) | payer OTHER, SELFPAY ==
--- NOTE | ~2024-02-16 | MM_ITS ---
MM stereotactic specimen LT, MM stereotactic bx LT, MM post biopsy invasive LT EXAMINATION: MM stereotactic specimen LT, MM stereotactic bx LT, MM post biopsy invasive LT DATE: Spencer Awan M.D. INDICATION: Abnormal calcifications in the left breast. Stereotactic core biopsy is requested evalua te for malignancy.] BREAST PARENCHYMAL COMPOSITION: Dense: The breasts are heterogeneously dense, which may obscure small masses TECHNIQUE AND FINDINGS: The risks and potential benefits of the procedure were discussed with the patient and written informe d consent was obtained. The patient was placed in the prone position clustered at the table with the left breast in mediolateral compression, and the area of interest was localized and targeted utilizi ng digital imaging with stereotaxis. After sterile preparation of the skin, 1% lidocaine was utilized for local anesthesia at the skin pun cture site and 1% lidocaine with epinephrine was utilized for deeper local anesthesia/is about the bi opsy site. A 9G [employer] Vision vacuum assisted biopsy needle was advanced to the level of the calcification o f interest from a lateral approach utilizing stereotactic guidance and a total of 6 tissue core biops ies were obtained. A specimen radiograph demonstrates that the calcifications of interest are included within the tissue cores. A tissue marker clip was then placed at the biopsy site. The needle was removed and hemosta sis was achieved. The patient tolerated the procedure well and there is no evidence of significant i mmediate complication. The patient was given verbal as well as written postprocedural instructions p rior to discharge from the department. Tissue cores were submitted to surgical pathology for histolo gic analysis. A 2-view left unilateral digital mammogram was obtained post procedure and this demonstrates that the tissue marker clip is in expected position. IMPRESSION: 1. Successful stereotactic biopsy of calcifications in the upper Outer quadrant of the left breast w ith post procedure mammogram for marker placement. Please refer to pathology report for histologic a nalysis. Reviewed, dictated and finalized at location B. IMPRESSION: 1. Successful stereotactic biopsy of calcifications in the upper Outer quadran t of the left breast with post procedure mammogram for marker placement. Pleas e refer to pathology report for histologic analysis. IMPRESSION: 1. Successful stereotactic biopsy of calcifications in the upper Outer quadran t of the left breast with post procedure mammogram for marker placement. Pleas e refer to pathology report for histologic analysis.
== END 2024-02-16 07:51 | disposition home or self-care (01) ==
PROVIDERS: PCP Physician Assistant Medical; Visit Provider Surgery
DX: R92.1 Mammographic calcification found on diagnostic imaging of breast (principal); R92.8 Other abnormal and inconclusive findings on diagnostic imaging of breast
CPT/HCPCS: 19081; 88305

== ENCOUNTER 2024-04-06 10:50 | Outpatient (CLI) | payer OTHER, SELFPAY ==
--- NOTE | ~2024-04-06 | CT_ITS ---
EXAMINATION: CT soft tissue neck w con DATE: 04/06/2024 11:33 INDICATION: Tonsil cancer. TECHNIQUE: Computed tomography (CT) of the neck was performed with 75 mL Omnipaque-350 intravenous co ntrast. Automated exposure control and iterative reconstruction technique were employed. The dose-day gth product was 439.60 mGy-cm. COMPARISON: Neck CT 09/24/2023 FINDINGS: There is mucosal thickening in the pharynx and larynx, consistent with changes of radiation therapy. There are no pathologically enlarged lymph nodes. There is 0% stenosis of the proximal inte rnal carotid arteries relative to normal distal artery lumen diameters. There is mild mucosal thicken ing in the paranasal sinuses. The mastoid air cells are normal. There is moderate cervical spondylosi s. IMPRESSION: 1. No evidence of metastatic disease. Reviewed, dictated and finalized at location A. CIPAL CLERK
== END 2024-04-06 10:51 | disposition home or self-care (01) ==
PROVIDERS: PCP Physician Assistant Medical; Visit Provider Internal Medicine Hematology & Oncology
DX: C10.9 Malignant neoplasm of oropharynx, unspecified (principal)
CPT/HCPCS: 70491; Q9967

== ENCOUNTER 2025-01-11 14:07 | Outpatient (CLI) | payer OTHER, SELFPAY ==
--- NOTE | ~2025-01-11 | CT_ITS ---
EXAMINATION: CT soft tissue neck w con DATE: 01/11/2025 14:39 INDICATION: Oropharyngeal cancer TECHNIQUE: Computed tomography (CT) of the neck was performed with 75 mL Omnipaque-350 intravenous contrast. Automated exposure control and iterative reconstruction technique were employed. The dose-length product was 334.37 mGy-cm. COMPARISON: 04/06/2024 FINDINGS: Orbits are normal. Mild mucosal thickening the bilateral maxillary sinuses. Mastoid aircells and middle ear cavities are clear. Submandibular and parotid glands are normal and symmetric. Thyroid gland is unremarkable. There are scattered normal-sized lymph nodes in the neck, no lymphadenopathy. No masses identified. The vasculature is patent and normal in caliber. Airway is unremarkable. Superior mediastinum is unremarkable. Lung apices are normal. Moderate lower cervical spondylosis. IMPRESSION: 1. No evident locally recurrent or metastatic disease. Reviewed, dictated and finalized at location A.
--- OUTSIDE RECORDS SUMMARY | 2025-01-11 14:37 | XMS_ITS ---
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 Past Treatment and Therapy Plans No past plan information found. Lifetime Dose Tracking * Chemical Lifetime Dose Automatic Entry Manual Entr y cisplatin 97.99 mg/m2 (195 mg) 97.99 mg/m2 (195 mg) 0 mg/m2 (0 mg)
--- OUTSIDE RECORDS SUMMARY | 2025-01-11 14:37 | XMS_ITS | Encounter Summary ---
Author Organization [facility] Address [address] [place] [address] Care Team Providers Care Long Lines Operator Name Role Phone Sylvia Castillo MD Primary Care Provider Encounter Details Date Type Department Care Team (Late st Contact Info) Description 01/10/2025 External Device Data ST[facility] ABSTRACTION Provider, Abstract NO ADDRESS ON FILE Social History Tobacco Use Types Packs/Day Years Used Date Smoking Tobacco: Former Cigarettes 1 3 1992 Smokeless Tobacco: Never Alcohol Use Standard Drinks/Week Comments Yes 1 (1 standard drink = 0.6 oz pur e alcohol) Comments Unknown Sex and Gender Information Value Date Recorded Sex Assigned at Not on file Legal Sex Female 3:22 PM CDT Gender Identity Not on file Sexual Orientation Not on file documented as of this encounter Plan of Treatment Upcoming Encounters Date Type Department Care Team (Late st Contact Info) Description 01/18/2025 11:30 AM CDT Office Visit [facility]] Oncology and Hematology - [place] [address] [facility] [address] [address] Woody Mendes MD [address] [facility] [address] [place] [address] documented as of this encounter Visit Diagnoses Not on filedocumented in this encounter Care Teams Long Lines Operator Relationship Specialty Start Date End Date Sylvia Castillo MD [address] [place] [address] PCP - General Family Practice 01/14/23 documented as of this encounter
--- OUTSIDE RECORDS SUMMARY | 2025-01-11 14:37 | XMS_ITS | Clinical Summary ---
Author Organization [facility] Address [address] [place] [address] Care Team Providers Care Graphic Production Artist Name Role Phone Sylvia Castillo MD Primary Care Provider [phone] Source Comments [facility],non-owned Affiliates and Associated Physician Practices is amultiple site organization consisting of ambulatory clinics and hospital sitesin [place], [place] and [place]. This disclosure is being madepursuant to the Care Everywhere program and may not contain all information available regarding this patient. Last updated 18.[facility] Allergies No known active allergies Medications * Be aware that medications may not be up to date on this document. Alwaysverify current medications with the patient. levothyroxine (Synthroid) 88 MCG tablet Take 1 (one) tablet by mouth once daily 12/17/2022 Active Omeprazole 20 MG TBDD Take 1 (one) tablet by mouth as directed 08/30/2021 Active acetaminophen (Tylenol) 500 MG capsule Take 2 (two) capsules by mouth every 6 hours as needed for Fever or Pain 30 capsule 1 01/06/2023 Active ibuprofen (Motrin) 600 MG tablet Take 1 (one) tablet by mouth every 6 hours as needed for Pain 30 tablet 01/06/2023 Active pilocarpine HCl (Salagen) 5 MG tablet Take 1 (one) tablet by mouth once daily 06/21/2023 Active Active Problems Problem Noted Date Diagnosed Date Tonsil cancer 07/07/2023 Resolved Problems Problem Noted Date Diagnosed Date Resolved Date Tonsillar mass 12/26/2022 07/07/2023 Immunizations Immunization Administration Dates Next Due FLU VACCINE TRI IIV3 SPLIT P F IM (FLUVIRIN) 02/01/2019,01/20/2019,03/22/2018,2016 HEP B VACCINE, ADULT 3 DOSE 11/19/2018, 9 INFLUENZA VACCINE 02/01/2019 INFLUENZA VACCINE, CELL CULT URE, QUADR. (FLUCELVAX QUADRIVALENT; 6MO+) (CCIIV4) 01/20/2019 INFLUENZA VACCINE, CELL CULT URE, QUADR. (FLUCELVAX QUADRIVALENT; 6MO+), 0.5 ML (CCIIV4) 01/20/2019 MMR 12/21/2018, 9,11/19/2018,2018 TD (ADULT), 5 LF TETANUS TOX OID, ADSORBED, PF 09/18/2009 TDAP (7yrs+) 11/19/2018,11/19/2018 Td (Adult), 2 Lf Tetanus Tox oid, Adsorbed, Pf 09/18/2009 VARICELLA 12/21/2018,11/20/2018 Social History Tobacco Use Types Packs/Day Years Used Date Smoking Tobacco: Never Smokeless Tobacco: Never Tobacco Cessation:Counseling Given: Not Answered Alcohol Use Standard Drinks/Week Comments Yes 1 (1 standard drink = 0.6 oz pur e alcohol) socially Comments No Sex and Gender Information Value Date Recorded Sex Assigned at Not on file Legal Sex Female 2:29 PM CDT Gender Identity Not on file Sexual Orientation Not on file Last Filed Vital Signs Vital Sign Reading Time Taken Comments Blood Pressure 122/76 08/31/2024 3:59 PM CDT Pulse 76 08/31/2024 3:59 PM CDT Temperature 36.4 C (97.5 F) 01/06/2023 2:05 PM CDT Respiratory Rate 9 01/06/2023 2:30 PM CDT Oxygen Saturation 100% 01/06/2023 2:30 PM CDT Inhaled Oxygen Concentration - - Weight 65.8 kg (145 lb) 08/31/2024 3:59 PM CDT Height 170.2 cm (5' 7) 08/31/2024 3:59 PM CDT Body Mass Index 22.71 08/31/2024 3:59 PM CDT Plan of Treatment Health Maintenance Due Date Last Done Comments TYLER (AGES 45-75) - COLON CA SCREENING 1965 COLON MONITORING 1965 COLONOSCOPY - COLON CA SCREENING 1965 CT COLONOGRAPHY - COLON CA SCREENING 1965 Colorectal Cancer Screening 1965 FIT - COLON CA SCREENING 1965 FLEX SIG - COLON CA SCREENING 1965 LIPID TESTING 1965 HIV SCREENING 1980 HEPATITIS C SCREENING 05/02/1983 PAP SMEAR 1986 PNEUMOCOCCAL VACCINE 50+ (1 of 1 - PCV) 2015 ZOSTER VACCINE (1 of 2) 2015 HEPATITIS B VACCINE (2 of 3 - 19+ 3-dose series) 12/17/2018 11/19/2018, 11/19/2018 MAMMOGRAM 06/13/2021 06/13/2019, 05/26, 03/23/2018 COVID-19 VACCINE ( season) 2024 05/30/2022, 06/12/2021, 08/30/2020, Additional history exists DEPRESSION SCREENING 05/25/2024 INFLUENZA VACCINE (#1) 2025 9, 02/01/2019, 01/20/2019, Additional history exists DTAP/TDAP/TD VACCINES (4 - Td or Tdap) 11/19/2028 11/19/2018, 11/19/2018, 09/18/2009, Additional history exists HIB VACCINE Aged Out No longer eligi ble based on patient's age to complete this topic HPV VACCINE Aged Out No longer eligi ble based on patient's age to complete this topic MENINGOCOCCAL (Group B) VACCINE SHARED DECISION-MAKING Aged Out No longer eligible based on patient's age to complete this topic MENINGOCOCCAL GROUPS A/C/Y/W VACCINE Aged Out No longer eligible based on patient's age to complete this topic Insurance [facility] Care Teams Graphic Production Artist Relationship Specialty Start Date End Date Sylvia Castillo MD [address] [facility] [place] [address] PCP - General Family Medicine 12/22/22
--- OUTSIDE RECORDS SUMMARY | 2025-01-11 14:37 | XMS_ITS | Encounter Summary ---
Author Organization [facility] Address [address] [place] [address] Care Team Providers Care Toll Operator Name Role Phone Sylvia Castillo MD Primary Care Provider [phone] Encounter Details Date Type Department Care Team [...] Description 01/18/2025 11:30 AM CDT Office Visit [facility] Oncology and Hematology - [place] [address] [facility] [address] [address] Woody Mendes MD [address] [facility] [address] [place] [address] documented as of this encounter Visit Diagnoses Not on filedocumented in this encounter Care Teams Toll Operator Relationship Specialty Start Date End Date Sylvia Castillo MD [address] [place] [address] PCP - General Family Practice 01/14/23 documented as of this encounter
--- OUTSIDE RECORDS SUMMARY | 2025-01-11 14:37 | XMS_ITS | Clinical Summary ---
Author Organization [facility]atha [facility] Address [address] [facility] [place] [address] Care Team Providers Care Precision Assembler Bench Name Role Phone Sylvia Castillo MD Primary Care Provider [phone] Allergies Active Allergy Reactions Criticality Noted Date Comments Hydrocodone-Acetaminophe n Other (See Comments) 09/04/2016 Patient states she is having headaches, lightheadedness, dizziness, and blurred vision following Dearing Patient states she is having headaches, lightheadedness, dizziness, and blurred vision following Dearing Hydromorphone Other (See Comments) 09/04/2016 Patient states she had headaches, locked jaw, lightheadedness, dizziness, and blurred vision after IV dilaudid Patient states she had headaches, locked jaw, lightheadedness, dizziness, and blurred vision after IV dilaudid Patient states she had headaches, locked jaw, lightheadedness, dizziness, and blurred vision after IV dilaudid Patient states she had headaches, locked jaw, lightheadedness, dizziness, and blurred vision after IV dilaudid Medications levothyroxine 88 mcg tablet Take 1 Tablet (88 mcg) by mouth daily. 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 Primary osteoarthritis of right hip 10/05/2015 Encounters Date Type Department Care Team Description 01/10/2025 External Device Data STL ABSTRACTION Provider, Abstract 01/10/2025 External Device Data STL ABSTRACTION Provider, Abstract 01/03/2025 External Device Data STL ABSTRACTION Provider, Abstract 12/28/2024 External Device Data STL ABSTRACTION Provider, Abstract 12/07/2024 External Device Data STL ABSTRACTION Provider, Abstract 12/06/2024 External Device Data STL ABSTRACTION Provider, Abstract 11/09/2024 External Device Data STL ABSTRACTION Provider, Abstract 10/12/2024 External Device Data STL ABSTRACTION Provider, Abstract 10/12/2024 Telephone [facility] [address] [facility] [address] [address] [facility] [address] [place] [address] Nani Perez MD cx appt 10/11/2024 External Device Data STL ABSTRACTION Provider, Abstract from Last 3 Months Family History Medical History Relation Name Comments Heart Disease Father Stomach Cancer Father Diabetes Mother Varicose Veins Mother Relation Name Status Comments Daughter Alive Father Mother Alive Sister Alive Son Alive Social History Tobacco Use Types Packs/Day Years Used Date Smoking Tobacco: Former Cigarettes 1 3 1 - 1992 Smokeless Tobacco: Never Tobacco Cessation:Counseling Given: Not [...] Sign Reading Time Taken Comments Blood Pressure 120/69 07/20/2024 11:31 AM REACTOR TECHNICIAN Pulse 98 07/20/2024 11:31 AM REACTOR TECHNICIAN Temperature 35.9 C (96.7 F) 07/20/2024 11:31 AM REACTOR TECHNICIAN Respiratory Rate 15 07/20/2024 11:3 1 AM REACTOR TECHNICIAN Oxygen Saturation 87% 07/20/2024 11: 31 AM REACTOR TECHNICIAN Inhaled Oxygen Concentration - - Weight 65.2 kg (143 lb 12.8 oz) 025 11:31 AM REACTOR TECHNICIAN Height 170.2 cm (5' 7) 06/07/2024 1:12 PM REACTOR TECHNICIAN Body Mass Index 22.52 06/07/2024 1:12 PM REACTOR TECHNICIAN Plan of Treatment Upcoming Encounters Date Type Department Care Team (Late st Contact Info) Description 01/18/2025 11:30 AM CDT Office Visit [facility] Oncology and Hematology - [place] [address] [place] [address] Woody Mendes MD [address] [facility] [address] [place] [address] Health Maintenance Due Date Last Done Comments HEPATITIS B VACCINES (1 of 3 - 19+ 3-dose series) 1984 11/19/2018 HPV/Cotest (21-29) 1986 CERVICAL CANCER SCREENING 1995 HPV/Cotest (30-65) 1995 PAP SMEAR 1995 COLORECTAL SCREENING 2010 Colorectal Cancer Screening 2010 FIT-DNA Q 3 years 2010 FIT/FOBT Q 1 year 2010 Flex Sig/CT Colonography Q 5 years 2010 ZOSTER VACCINE (1 of 2) 2015 BREAST CANCER SCREENING 06/13/2020 06/13/19 20, 06/13/2019, 03/23/2018, Additional history exists INFLUENZA VACCINE (#1) 2024 , 01/20/2019, 01/20/2019, Additional history exists DTAP/TDAP/TD VACCINES (2 - T d or Tdap) 11/19/2028 11/19/2018, 09/18/2009 Insurance [facility] [id number] [facility] [place] [id number] Care Teams Precision Assembler Bench Relationship Specialty Start Date End Date Sylvia Castillo MD [address] [place] [address] PCP - General Family Practice 01/14/23
--- OUTSIDE RECORDS SUMMARY | 2025-01-11 14:37 | XMS_ITS ---
Author Organization [facility] Address [address] [facility] [place] [address] Care Team Providers Care International Marketing Intern Name Role Phone Sylvia Castillo MD Primary Care Provider [phone] Active Problems Problem Noted Date Diagnosed Date Tonsil cancer 07/07/2023 Current Treatment and Therapy Plans No current plan information found. Past Treatment and Therapy Plans No past plan information found. Lifetime Dose Tracking * Chemical Lifetime Dose Automatic Entry Manual Entr y Dose Length Product 1,039.9 mGy-cm 1,039.9 mGy-cm 0 mG y-cm Resolved Problems Problem Noted Date Diagnosed Date Resolved Date Tonsillar mass 12/26/2022 07/07/2023
== END 2025-01-11 14:08 | disposition home or self-care (01) ==
PROVIDERS: PCP Family Medicine; Visit Provider Internal Medicine Hematology & Oncology
DX: C10.9 Malignant neoplasm of oropharynx, unspecified (principal)
CPT/HCPCS: 70491; Q9967

== ENCOUNTER 2025-01-13 15:01 | Outpatient (CLI) | payer OTHER, SELFPAY ==
--- OUTSIDE RECORDS SUMMARY | 2025-01-13 15:05 | XMS_ITS | Clinical Summary ---
Author Organization [facility] Address [address] [facility] [place] [address] Care Team Providers Care Bell Tier Name Role Phone Sylvia Castillo MD Primary Care Provider [phone] Source Comments [facility],non-owned Affiliates and Associated Physician Practices is amultiple site organization consisting of ambulatory clinics and hospital sitesin [place], [place], [place] and [place]. This disclosure is being madepursuant to the Care Everywhere program and may not contain all information available regarding this patient. Last updated 18.[facility] Allergies No known active allergies Medications * [...] patient's age to complete this topic Insurance [place] [address] Care Teams Bell Tier Relationship Specialty Start Date End Date Sylvia Castillo MD [address] [facility] [place] [address] PCP - General Family Medicine 12/22/22
--- OUTSIDE RECORDS SUMMARY | 2025-01-13 15:05 | XMS_ITS | Clinical Summary ---
Author Organization [facility]atha [facility] Address [address] [place] [address] Care Team Providers Care Junior Systems Analyst Name Role Phone Sylvia Castillo MD Primary Care Provider [phone] Allergies Active Allergy Reactions Criticality Noted Date Comments Hydrocodone-Acetaminophe n Other (See Comments) 09/04/2016 Patient states she is having headaches, lightheadedness, dizziness, and blurred vision following [place] Patient states she is having headaches, lightheadedness, dizziness, and blurred vision following [place] Hydromorphone Other (See Comments) 09/04/2016 Patient states [...] right hip replacement 7 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 Primary osteoarthritis of right hip 10/05/2015 Encounters Date Type Department Care Team Description 01/11/2025 Telephone [facility] On[facility] H[facility]ology [place] [address] [facility] [place] [address] [place] [id number] Woody Mendes MD lab orders 01/10/2025 External Device Data [place] ABSTRACTION Provider, [...] Smoking Tobacco: Former Cigarettes 1 3 1 0 - 1992 Smokeless Tobacco: Never Tobacco Cessation:Counseling [...] Comments Blood Pressure 120/69 07/20/2024 11:31 AM SPRINKLER FITTER HELPER Pulse 98 07/20/2024 11:31 AM SPRINKLER FITTER HELPER Temperature 35.9 C (96.7 F) 07/20/2024 11:31 AM SPRINKLER FITTER HELPER Respiratory Rate 15 07/20/2024 11:3 1 AM SPRINKLER FITTER HELPER Oxygen Saturation 87% 07/20/2024 11: 31 AM SPRINKLER FITTER HELPER Inhaled Oxygen Concentration - - Weight 65.2 kg (143 lb 12.8 oz) 025 11:31 AM SPRINKLER FITTER HELPER Height 170.2 cm (5' 7) 06/07/2024 1:12 PM SPRINKLER [employer]TER HELPER Body Mass Index 22.52 06/07/2024 1:12 PM SPRINKLER [employer]TER HELPER Plan of Treatment Upcoming Encounters Date Type Department Care Team (Late st Contact Info) Description 01/18/2025 11:30 AM CDT Office Visit [facility] Oncology and Hematology - [place] [address] [place] [address] Woody Mendes MD [address] [place] [address] Health Maintenance Due Date Last [...] 06/13/19 20, 06/13/2019, 03/23/2018, Additional history exists Preventative Visit- Commercial 05/25/2024 1 07/13/2018, 03/19/2018, 03/06/2017, Additional history exists INFLUENZA VACCINE (#1) 2024 9, 01/20/2019, 01/20/2019, Additional history exists DTAP/TDAP/TD VACCINES (2 - T d or Tdap) 11/19/2028 11/19/2018, 09/18/2009 Insurance [facility] CORE [id number] [facility] CORE [id number] Care Teams Junior Systems Analyst Relationship Specialty Start Date End Date Sylvia Castillo MD [address] [place] [id number] PCP - General Family Practice 01/14/23
--- OUTSIDE RECORDS SUMMARY | 2025-01-13 15:05 | XMS_ITS ---
Author Organization [facility] sujatha [facility] Address [address] [facility] [place] [address] Care Team Providers Care Shank Tapper Name Role Phone Sylvia Castillo MD Primary Care Provider [phone] Active Problems Problem Noted Date Diagnosed Date [...]
--- OUTSIDE RECORDS SUMMARY | 2025-01-13 15:05 | XMS_ITS ---
Author Organization [facility] Address [address] [place] [address] Care Team Providers Care Peer Support Specialist Name Role Phone Sylvia Castillo MD Primary Care Provider [phone] Active Problems Problem Noted Date Diagnosed Date [...]
[2025-01-13 15:29] LABS: Hematocrit 36.8 % (37.0-47.0); Hemoglobin 12.1 g/dL (12.0-15.0); Immature Granulocyte Percent A 0.2 % (0-0.5); Lymphocytes Absolute Auto 1.19 K/mm3 (0.9-3.2); Mean Corpuscular HGB Conc 32.9 g/dl (32-36); Mean Corpuscular Hemoglobin 29.9 pg (26-34); Mean Corpuscular Volume 90.9 fl (80-100); Nucleated Red Blood Cells Absolute Auto 0.000 K/mm3 (0.0-0.012); Nucleated Red Blood Cells Perc 0.0 % (0.0-0.2); Platelet Count Result 181 k/mm3 (150-375); Red Blood Count 4.05 M/mm3 (4.2-5.4); White Blood Count 4.5 K/mm3 (4.5-10.0)
[2025-01-13 15:58] LABS: Alanine Aminotransferase 25 U/L (6-35); Albumin Level 4.3 g/dL (3.5-5.1); Alkaline Phosphatase 66 U/L (38-126); Anion Gap 5 mmol/L (4-12); Aspartate Amino Transferase 30 U/L (14-36); Bilirubin,Total 0.6 mg/dL (0.2-1.3); Blood Urea Nitrogen 17 mg/dL (7-17); Calcium 9.1 mg/dL (8.4-10.2); Carbon Dioxide 26 mmol/L (22-30); Chloride 105 mmol/L (98-107); Estimated Glomerular Filt Rate > 60; Glucose 98 mg/dL (65-110); Potassium 4.2 mmol/L (3.4-5.0); Sodium 136 mmol/L (137-145); Total Protein 6.8 g/dL (6.3-8.2)
[2025-01-13 16:34] LABS: Thyroid Stimulating Hormone 5.820 uIU/mL (0.465-4.680)
== END 2025-01-13 15:02 | disposition home or self-care (01) ==
LOC: ANHLAB 15:03
PROVIDERS: PCP Family Medicine; Visit Provider Internal Medicine Hematology & Oncology
DX: C10.9 Malignant neoplasm of oropharynx, unspecified (principal); E06.3 Autoimmune thyroiditis
CPT/HCPCS: 36415; 80053; 84443; 85025